=== PATIENT | female | born 1945 | race Caucasian/White ===

== ENCOUNTER 2021-04-13 17:45 | Inpatient (IN) | payer MEDICARE ==
[2021-04-13] MEDS ORDERED: Sodium Chloride 0.9% 1000 ML 1,000 ML ONE (18:07)
--- NOTE | 2021-04-13 18:24 | ERPHSYRPT ---
- History of Present Illness Source: patient Exam Limitations: clinical condition Patient Subjective Stated Complaint: pt here for not earting well, weakness, occ sob for 9 days now, she was dx with covid 04/09/2021 and had monoclonal antiboities on , she states she is not feeling better. talked with spouse and he states she mentally not as sharp as normal Triage Nursing Assessment: pt alert, poor historian, resp easy, dry cough, face mask in place, no edema noted Timing/Duration: day(s) (9) Cough Quality/Degree: mild (Moderate), dry cough Possible Cause: no prior episodes Modifying Factors: Improves With: coughing Associated Symptoms: cough, muscle aches, shortness of breath Hx Influenza Vaccination/Date Given: Yes (fall 2012) Hx Pneumococcal Vaccination/Date Given: No Immunizations Up to Date: Yes <DEVIN TORRES - Last Filed: 04/13/21 18:32> <RODRI NIEVES - Last Filed: 04/13/21 22:07> - History of Present Illness Time Seen by Provider: 04/13/21 18:15 Physician History: This is a 75-year-old white female patient of Dr. Pio Jones who is a poor historian. Much of the history is obtained from the patient's spouse. Approximately 9 days ago patient was noted to have cough and shortness of breath. Over subsequent days she noticed a decreased in appetite and she became weak. She was diagnosed with COVID-19 infection on 04/09/2021. On 04/11/2021 she received an infusion of monoclonal antibodies. Patient's said since then she has been doing worse. Patient spouse notes that in the last several months she has shown some signs of decreased mental sharpness and questions whether or not she is having some degree of dementia. The symptoms have worsened in the last week. Patient's symptoms have included vomiting and diarrhea, headache, weakness, myalgias and arthralgias. Patient has a history of hypertension and elevated cholesterol. Her room air oxygen level on arrival to the emergency department is 89%. 2 L of oxygen via nasal cannula was placed on the patient. Patient denies chest pain and she denies abdominal pain. (DEVIN TORRES) Allergies/Adverse Reactions: No Known Drug Allergies Allergy (Verified 04/13/21 18:21) Home Medications: Carvedilol [Coreg] 3.125 mg PO 04/13/21 [History] Famotidine 20 mg [Pepcid 20 MG] 1 ea DAILY 04/13/21 [History] Potassium Chloride [Klor-Con] 1 ea DAILY 04/13/21 [History] Prednisone 10 mg [Deltasone 10 mg] 1 ea DAILY 04/13/21 [History] Simvastatin 1 ea DAILY 04/13/21 [History] Travel Risk - International Travel Have you traveled outside of the country in past 3 weeks: No - Coronavirus Screening Are you exhibiting any of the following symptoms?: Yes Symptoms: Vomiting/Diarrhea, Headaches/Body Aches/Fatigue Close contact with a COVID-19 positive Pt in past 14-21 Days: No - Vaccine Status Have you recieved a Covid-19 vaccination: No <DEVIN TORRES - Last Filed: 04/13/21 18:32> - Review of Systems Constitutional: Weakness Eyes: No Symptoms Ears, Nose, & Throat: No Symptoms Respiratory: Cough, Dyspnea Cardiac: No Symptoms Abdominal/Gastrointestinal: Vomiting, Diarrhea, Appetite Changes, No Abdominal Pain, No Constipation Genitourinary Symptoms: No Symptoms Musculoskeletal: Arthralgias, Myalgias Skin: No Symptoms Neurological: No Symptoms Psychological: No Symptoms Endocrine: No Symptoms Hematologic/Lymphatic: No Symptoms Immunological/Allergic: No Symptoms All Other Systems: Reviewed and Negative <DEVIN TORRES - Last Filed: 04/13/21 18:32> - Past Medical History Pertinent Past Medical History: Yes Neurological History: No Pertinent History ENT History: No Pertinent History Cardiac History: Hypertension Respiratory History: No Pertinent History Endocrine Medical History: No Pertinent History Musculoskeletal History: No Pertinent History GI Medical History: Esophageal Disorder, Hernia History: No Pertinent History Psycho-Social History: No Pertinent History Female Reproductive Disorders: Other Other Medical History: abnormal uterine cell/hyster - Past Surgical History Past Surgical History: Yes Neuro Surgical History: No Pertinent History Cardiac: No Pertinent History Respiratory: No Pertinent History Gastrointestinal: No Pertinent History Genitourinary: No Pertinent History Musculoskeletal: Other Female Surgical History: Hysterectomy Other Surgical History: right foot/toe joint replacement. prervious EGD in may 2013 - Social History Smoking Status: Never smoker Exposure to second hand smoke: No Drug Use: none Patient Lives Alone: Yes - Female History Hx Last Menstrual Period: psot Hx Now: No <DEVIN TORRES - Last Filed: 04/13/21 18:32> - Physical Exam General Appearance: no apparent distress, alert, lethargy, thin Eye Exam: PERRL/EOMI, eyes nml inspection Ears, Nose, Throat Exam: normal ENT inspection, dry mucous membranes Neck Exam: normal inspection, non-tender, supple, full range of motion Respiratory Exam: normal breath sounds, lungs clear, airway intact, No chest tenderness, No respiratory distress Cardiovascular Exam: regular rate/rhythm, normal heart sounds, normal peripheral pulses Gastrointestinal/Abdomen Exam: soft, normal bowel sounds, No tenderness Pelvic Exam: not done Rectal Exam: not done Back Exam: normal inspection, normal range of motion, No CVA tenderness, No vertebral tenderness Extremity Exam: normal inspection, normal range of motion, pelvis stable Neurologic Exam: alert, cooperative, manager stone II-XII nml as tested (Generalized weakness), other Skin Exam: pale Lymphatic Exam: No adenopathy SpO2 Interpretation: hypoxic SpO2: 90 O2 Delivery: Room Air <LORIE TORRESDO Gemma - Last Filed: 04/13/21 18:32> - Nursing Vital Signs Nursing Vital Signs: Initial Vital Signs O2 Sat by Pulse Oximetry 88 L 04/13/21 18:00 Pain Scale Pain Intensity 0 - Course Nursing assessment & vital signs reviewed: Yes EKG Interpreted by Me: RATE (77), NORMAL AXIS, prolonged QT interval, NORMAL ST- T, Other (No acute ischemic changes on today's EKG. There is no comparison EKG available.) <LORIE TORRESDO SilverRita - Last Filed: 04/13/21 18:32> - Radiology Exams Chest X-ray Interpretation: Reviewed by me, Infiltrates - CT Exams Chest CT Interpretation: Tele-radiologist Report, No PE, Other (infiltrates consistent with Covid) Abdomen/Pelvis CT Interpretation: Tele-radiologist Report, No appendicitis <RODRI NIEVES - Last Filed: 04/13/21 22:07> Ordered Tests: Active Orders 24 hr Category Date Time Status EKG-ER Only STAT Care 04/13/21 18:25 Active IV Insertion STAT Care 04/13/21 18:25 Active Pulse Oximetry (ED) STAT Care 04/13/21 18:25 Active ABDOMEN AND PELVIS W CONTRAST [CT] Stat Exams 04/13/21 20:10 Taken CHEST 1 VIEW (PORTABLE) Stat Exams 04/13/21 18:26 Completed CHEST WITH CONTRAST [CT] Stat Exams 04/13/21 19:34 Taken BLOOD CULTURE Stat Lab 04/13/21 18:41 Received CBC W DIFF Stat Lab 04/13/21 18:41 Completed CMP Stat Lab 04/13/21 18:41 Completed CULTURE,URINE Stat Lab 04/13/21 18:25 Received D-DIMER QUANTITATIVE Stat Lab 04/13/21 18:41 Completed INFLUENZA A+B ENA Stat Lab 04/13/21 19:16 Completed Lactic Acid Stat Lab 04/13/21 18:42 Completed Manual Differential NC Stat Lab 04/13/21 18:41 Completed Deuel Screen Stat Lab 04/13/21 18:41 Completed NT PRO BNP Stat Lab 04/13/21 18:41 Completed TROPONIN Q3H Lab 04/13/21 18:43 Completed TROPONIN Q3H Lab 04/13/21 21:36 Completed TROPONIN Q3H Lab 04/14/21 00:30 Ordered TROPONIN Q3H Lab 04/14/21 03:30 Ordered TROPONIN Q3H Lab 04/14/21 06:30 Ordered UA W/RFX UR CULTURE Stat Lab 04/13/21 18:25 Completed Medication Summary Generic Name Dose Route Start Last Admin Trade Name Freq PRN Reason Stop Dose Admin Sodium Chloride 1,000 mls @ 100 mls/hr 04/13/21 18:30 04/13/21 19:00 Sodium Chloride 0.9% 1000 Ml IV 05/13/21 18:29 100 mls/hr .Q10H PEDRO Administration Potassium Chloride 20 meq in 100 mls @ 50 mls/hr 04/13/21 19:45 Potassium Chloride 20 Meq In Water 100ml IV 04/13/21 23:44 Q2H PEDRO Discontinued Medications Generic Name Dose Route Start Last Admin Trade Name Freq PRN Reason Stop Dose Admin Methylprednisolone Sodium 0 mg 04/13/21 18:27 04/13/21 18:51 Succinate 125 mg/ Sterile IV 04/13/21 18:28 125 mg Water 2 ml STAT ONE Administration Sodium Chloride Confirm 04/13/21 18:07 Sodium Chloride 0.9% 1000 Ml Administered 04/13/21 18:08 Dose 1,000 mls @ ud .ROUTE .STK-MED ONE Methylprednisolone Sodium Succinate Confirm 04/13/21 18:47 Methylprednis Sod Succ 125 Mg/2 Ml Vial Administered 04/13/21 18:48 Dose 125 mg .ROUTE .STK-MED ONE Ondansetron HCl 4 mg 04/13/21 18:25 04/13/21 18:50 Ondansetron Hcl 4 Mg/2 Ml Vial IV 04/13/21 18:26 4 mg STAT STA Administration Ondansetron HCl Confirm 04/13/21 18:47 Ondansetron Hcl 4 Mg/2 Ml Vial Administered 04/13/21 18:48 Dose 4 mg .ROUTE .STK-MED ONE Sterile Water Confirm 04/13/21 18:47 Water For Injection,Sterile 10 Ml Vial Administered 04/13/21 18:48 Dose 10 ml IJ .STK-MED ONE Lab/Rad Data: Laboratory Result Diagrams 04/13/21 18:41 04/13/21 18:41 Laboratory Results 04/13/21 04/13/21 04/13/21 Range/Units 19:19 19:19 19:16 WBC (4.0-10.5) K/mm3 RBC (4.1-5.4) M/mm3 Hgb (12.0-16.0) gm/dl Hct (35-47) % MCV (78-100) fl MCH (26-32) pg MCHC (32-36) g/dl RDW (11.5-14.0) % Plt Count (150-450) K/mm3 MPV (7.5-11.0) fl Segmented Neutrophils (36.0-66.0) % Lymphocytes (Manual) (24-44) % Monocytes (Manual) (0.0-12.0) % Nucleated RBCs % Hypochromia Polychromasia Poikilocytosis Anisocytosis Microcytosis Tear Drop Cells Ovalocytes D-Dimer (215-500) ng/mL Sodium (137-145) mmol/L Potassium (3.5-5.1) mmol/L Chloride (98-107) mmol/L Carbon Dioxide (22-30) mmol/L Anion Gap (5-15) MEQ/L BUN (7-17) mg/dL Creatinine (0.52-1.04) mg/dL Estimated GFR ML/MIN Glucose (74-106) mg/dL Lactic Acid (0.4-2.0) Calcium (8.4-10.2) mg/dL Total Bilirubin (0.2-1.3) mg/dL AST (14-36) U/L ALT (0-35) U/L Alkaline Phosphatase (38-126) U/L Troponin I (0.000-0.034) ng/mL NT-Pro-B Natriuret Pep (0-1800) pg/mL Serum Total Protein (6.3-8.2) g/dL Albumin (3.5-5.0) g/dL Urine Color (YELLOW) Urine Appearance (CLEAR) Urine pH (5-6) Ur Specific [place] (1.005-1.025) Urine Protein (Negative) Urine Ketones (NEGATIVE) Urine Blood (0-5) Raj/ul Urine Nitrite (NEGATIVE) Urine Bilirubin (NEGATIVE) Urine Urobilinogen (0-1) mg/dL Ur Leukocyte Esterase (NEGATIVE) Urine WBC (Auto) (0-5) /HPF Urine RBC (Auto) (0-2) /HPF U Epithel Cells (Auto) (FEW) /HPF Urine Bacteria (Auto) (NEGATIVE) /HPF U Non-Squamous Epi Cells (FEW) /HPF Urine Mucus (Auto) (NEGATIVE) /HPF Urine Culture Reflexed (NO) Urine Glucose (NEGATIVE) mg/dL Monoscreen (Negative) Influenza Type A Ag (NEGATIVE) Influenza Type B Ag (NEGATIVE) Group A Strep Antibody (NEGATIVE) ABO Group O Rh Factor POSITIVE Antibody Screen NEGATIVE (NEGATIVE) Crossmatch COMPATIBLE COMPATIBLE (COMPATIBLE) 04/13/21 04/13/21 04/13/21 Range/Units 19:16 19:16 18:43 WBC (4.0-10.5) K/mm3 RBC (4.1-5.4) M/mm3 Hgb (12.0-16.0) gm/dl Hct (35-47) % MCV (78-100) fl MCH (26-32) pg MCHC (32-36) g/dl RDW (11.5-14.0) % Plt Count (150-450) K/mm3 MPV (7.5-11.0) fl Segmented Neutrophils (36.0-66.0) % Lymphocytes (Manual) (24-44) % Monocytes (Manual) (0.0-12.0) % Nucleated RBCs % Hypochromia Polychromasia Poikilocytosis Anisocytosis Microcytosis Tear Drop Cells Ovalocytes D-Dimer (215-500) ng/mL Sodium (137-145) mmol/L Potassium (3.5-5.1) mmol/L Chloride (98-107) mmol/L Carbon Dioxide (22-30) mmol/L Anion Gap (5-15) MEQ/L BUN (7-17) mg/dL Creatinine (0.52-1.04) mg/dL Estimated GFR ML/MIN Glucose (74-106) mg/dL Lactic Acid (0.4-2.0) Calcium (8.4-10.2) mg/dL Total Bilirubin (0.2-1.3) mg/dL AST (14-36) U/L ALT (0-35) U/L Alkaline Phosphatase (38-126) U/L Troponin I 0.064 H* (0.000-0.034) ng/mL NT-Pro-B Natriuret Pep (0-1800) pg/mL Serum Total Protein (6.3-8.2) g/dL Albumin (3.5-5.0) g/dL Urine Color (YELLOW) Urine Appearance (CLEAR) Urine pH (5-6) Ur Specific [place] (1.005-1.025) Urine Protein (Negative) Urine Ketones (NEGATIVE) Urine Blood (0-5) Raj/ul Urine Nitrite (NEGATIVE) Urine Bilirubin (NEGATIVE) Urine Urobilinogen (0-1) mg/dL Ur Leukocyte Esterase (NEGATIVE) Urine WBC (Auto) (0-5) /HPF Urine RBC (Auto) (0-2) /HPF U Epithel Cells (Auto) (FEW) /HPF Urine Bacteria (Auto) (NEGATIVE) /HPF U Non-Squamous Epi Cells (FEW) /HPF Urine Mucus (Auto) (NEGATIVE) /HPF Urine Culture Reflexed (NO) Urine Glucose (NEGATIVE) mg/dL Monoscreen (Negative) Influenza Type A Ag NEGATIVE (NEGATIVE) Influenza Type B Ag NEGATIVE (NEGATIVE) Group A Strep Antibody NOT DETECTED (NEGATIVE) ABO Group Rh Factor Antibody Screen (NEGATIVE) Crossmatch (COMPATIBLE) 04/13/21 04/13/21 04/13/21 Range/Units 18:42 18:41 18:41 WBC (4.0-10.5) K/mm3 RBC (4.1-5.4) M/mm3 Hgb (12.0-16.0) gm/dl Hct (35-47) % MCV (78-100) fl MCH (26-32) pg MCHC (32-36) g/dl RDW (11.5-14.0) % Plt Count (150-450) K/mm3 MPV (7.5-11.0) fl Segmented Neutrophils (36.0-66.0) % Lymphocytes (Manual) (24-44) % Monocytes (Manual) (0.0-12.0) % Nucleated RBCs % Hypochromia Polychromasia Poikilocytosis Anisocytosis Microcytosis Tear Drop Cells Ovalocytes D-Dimer 1297 H* (215-500) ng/mL Sodium (137-145) mmol/L Potassium (3.5-5.1) mmol/L Chloride (98-107) mmol/L Carbon Dioxide (22-30) mmol/L Anion Gap (5-15) MEQ/L BUN (7-17) mg/dL Creatinine (0.52-1.04) mg/dL Estimated GFR ML/MIN Glucose (74-106) mg/dL Lactic Acid 1.2 (0.4-2.0) Calcium (8.4-10.2) mg/dL Total Bilirubin (0.2-1.3) mg/dL AST (14-36) U/L ALT (0-35) U/L Alkaline Phosphatase (38-126) U/L Troponin I (0.000-0.034) ng/mL NT-Pro-B Natriuret Pep (0-1800) pg/mL Serum Total Protein (6.3-8.2) g/dL Albumin (3.5-5.0) g/dL Urine Color (YELLOW) Urine Appearance (CLEAR) Urine pH (5-6) Ur Specific [place] (1.005-1.025) Urine Protein (Negative) Urine Ketones (NEGATIVE) Urine Blood (0-5) Raj/ul Urine Nitrite (NEGATIVE) Urine Bilirubin (NEGATIVE) Urine Urobilinogen (0-1) mg/dL Ur Leukocyte Esterase (NEGATIVE) Urine WBC (Auto) (0-5) /HPF Urine RBC (Auto) (0-2) /HPF U Epithel Cells (Auto) (FEW) /HPF Urine Bacteria (Auto) (NEGATIVE) /HPF U Non-Squamous Epi Cells (FEW) /HPF Urine Mucus (Auto) (NEGATIVE) /HPF Urine Culture Reflexed (NO) Urine Glucose (NEGATIVE) mg/dL Monoscreen NEGATIVE (Negative) Influenza Type A Ag (NEGATIVE) Influenza Type B Ag (NEGATIVE) Group A Strep Antibody (NEGATIVE) ABO Group Rh Factor Antibody Screen (NEGATIVE) Crossmatch (COMPATIBLE) 04/13/21 04/13/21 04/13/21 Range/Units 18:41 18:41 18:25 WBC 7.1 (4.0-10.5) K/mm3 RBC 3.30 L (4.1-5.4) M/mm3 Hgb 6.0 L* (12.0-16.0) gm/dl Hct 24.7 L (35-47) % MCV 74.8 L (78-100) fl MCH 18.2 L (26-32) pg MCHC 24.3 L (32-36) g/dl RDW 20.1 H (11.5-14.0) % Plt Count 300 (150-450) K/mm3 MPV 10.0 (7.5-11.0) fl Segmented Neutrophils 91 H (36.0-66.0) % Lymphocytes (Manual) 3 L (24-44) % Monocytes (Manual) 6 (0.0-12.0) % Nucleated RBCs 5 % Hypochromia 2+ Polychromasia 1+ Poikilocytosis 1+ Anisocytosis 1+ Microcytosis 2+ Tear Drop Cells 1+ Ovalocytes 1+ D-Dimer (215-500) ng/mL Sodium 142 (137-145) mmol/L Potassium 3.0 L* (3.5-5.1) mmol/L Chloride 101 (98-107) mmol/L Carbon Dioxide 29 (22-30) mmol/L Anion Gap 14.4 (5-15) MEQ/L BUN 21 H (7-17) mg/dL Creatinine 0.76 (0.52-1.04) mg/dL Estimated GFR > 60.0 ML/MIN Glucose 101 (74-106) mg/dL Lactic Acid (0.4-2.0) Calcium 8.1 L (8.4-10.2) mg/dL Total Bilirubin 0.80 (0.2-1.3) mg/dL AST 29 (14-36) U/L ALT 27 (0-35) U/L Alkaline Phosphatase 75 (38-126) U/L Troponin I (0.000-0.034) ng/mL NT-Pro-B Natriuret Pep 2160 H (0-1800) pg/mL Serum Total Protein 6.3 (6.3-8.2) g/dL Albumin 3.3 L (3.5-5.0) g/dL Urine Color DARK YELLOW (YELLOW) Urine Appearance CLOUDY (CLEAR) Urine pH 6.0 (5-6) Ur Specific [place] 1.017 (1.005-1.025) Urine Protein 100 (Negative) Urine Ketones MODERATE (NEGATIVE) Urine Blood NEGATIVE (0-5) Raj/ul Urine Nitrite POSITIVE (NEGATIVE) Urine Bilirubin NEGATIVE (NEGATIVE) Urine Urobilinogen NEGATIVE (0-1) mg/dL Ur Leukocyte Esterase LARGE (NEGATIVE) Urine WBC (Auto) >100 (0-5) /HPF Urine RBC (Auto) 6-10 (0-2) /HPF U Epithel Cells (Auto) RARE (FEW) /HPF Urine Bacteria (Auto) PACKED (NEGATIVE) /HPF U Non-Squamous Epi Cells RARE (FEW) /HPF Urine Mucus (Auto) SLIGHT (NEGATIVE) /HPF Urine Culture Reflexed YES (NO) Urine Glucose NEGATIVE (NEGATIVE) mg/dL Monoscreen (Negative) Influenza Type A Ag (NEGATIVE) Influenza Type B Ag (NEGATIVE) Group A Strep Antibody (NEGATIVE) ABO Group Rh Factor Antibody Screen (NEGATIVE) Crossmatch (COMPATIBLE) - Progress Air Movement: fair Blood Culture(s) Obtained: Yes Counseled pt/family regarding: lab results, diagnosis, rad results <DEVIN TORRES - Last Filed: 04/13/21 18:32> - Progress Progress: re-examined, unchanged Antibiotics given: No Discussed with Dr.: Other (Dr. Cortez) Will see patient in: hospital (full admit), ED Counseled pt/family regarding: lab results, diagnosis, need for follow-up, rad results <RODRI NIEVES - Last Filed: 04/13/21 22:07> - Progress Progress Note: 04/13/21 18:37 At shift change, patient transfer of care to Dr. Nieves. He will follow up with pending laboratory test and x-ray studies. He will make final disposition. (DEVIN TORRES) 04/13/21 18:57 pt taken at change of shift from Dr. Torres after introduction and discussion of pending tests. pt is recent Covid + with vomiting and now decreased hgb 04/13/21 19:09 PT REPORTS NO ABD PAIN AND HAS NO ABD TENDERNESS ON EXAM. she has not noticed any blood in her vomitus or stool. 04/13/21 20:06 contacted transfer center and no beds at [facility] - placed on wait list for possibly tomorrow for + trop Covid for [facility] at . no current chest pain. 04/13/21 20:44 we had to call around to look for admission options and order some CTs to rule out additional pathology which is taking some additional time to complete. 04/13/21 21:[address] Cortez in ER and he saw pt here and all agree best to admit pt on Covid unit and trend trops - he is writing orders. (RODRI NIEVES) - Departure Departure Disposition: In-patient Admission Critical Care Time: No <DEVIN TORRES - Last Filed: 04/13/21 18:32> - Departure Departure Disposition: Observation <RODRI NIEVES - Last Filed: 04/13/21 22:07> - Departure Clinical Impression: COVID-19 virus infection, Hypoxia, Weakness, Decreased hemoglobin, elevated D dimer and troponins Condition: Fair
[2021-04-13] MEDS ORDERED: Zofran 4 MG/2 ML VIAL IV STA (18:25)
[2021-04-13] MEDS ORDERED: solu-MEDROL 125 MG, Sterile H2O 10 ml 2 ML IV ONE ×2 (18:27)
[2021-04-13] MEDS ORDERED: Zofran 4 MG/2 ML VIAL ONE (18:47)
[2021-04-13] MEDS ORDERED: solu-MEDROL ONE (18:47)
[2021-04-13] MEDS ORDERED: Sterile H2O 10 ml IJ ONE (18:47)
[2021-04-13 18:48] LABS: Hematocrit 24.7 % (35-47); Mean Cell Volume 74.8 fl (78-100); Mean Corpuscular Hemoglobin 18.2 pg (26-32); Mean Corpuscular Hgb Concent. 24.3 g/dl (32-36); Platelet Count 300 K/mm3 (150-450); Red Cell Distribution Width 20.1 % (11.5-14.0); White Blood Count 7.1 K/mm3 (4.0-10.5)
[2021-04-13] MEDS: Sodium Chloride 0.9% 1000 ML 1,000 ML IV SCH (19:00)
--- NOTE | 2021-04-13 19:13 | XRAY ---
Indication: Cough. Positive Covid 19. Comparison: January 20, 2006. Portable chest demonstrates new mild diffuse bilateral hazy interstitial alveolar opacities, left greater than right without consolidation//effusion. New borderline cardiomegaly and small hiatal hernia. Bony thorax intact with mild osteopenia and degenerative changes.
[2021-04-13 19:15] LABS: ALBUMIN 3.3 g/dL (3.5-5.0); ALKALINE PHOSPHATASE 75 U/L (38-126); ANION GAP 14.4 MEQ/L (5-15); BLOOD UREA NITROGEN 21 mg/dL (7-17); CHLORIDE 101 mmol/L (98-107); Calcium 8.1 mg/dL (8.4-10.2); Carbon Dioxide 29 mmol/L (22-30); Creatinine 1 0.76 mg/dL (0.52-1.04); EST GLOMERULAR FILTRATION RATE > 60.0 ML/MIN; Glucose 101 mg/dL (74-106); NT PRO BNP 2160 pg/mL (0-1800); SGOT/AST 29 U/L (14-36); SGPT/ALT 27 U/L (0-35); SODIUM 142 mmol/L (137-145); Total Protein 6.3 g/dL (6.3-8.2)
[2021-04-13 19:50] LABS: INFLUENZA A NEGATIVE (NEGATIVE); INFLUENZA B NEGATIVE (NEGATIVE)
[2021-04-13 20:24] LABS: Appearance CLOUDY (CLEAR); Bacteria PACKED /HPF (NEGATIVE); Bilirubin NEGATIVE (NEGATIVE); Blood NEGATIVE Ery/ul (0-5); Epithelial Cells RARE /HPF (FEW); Glucose NEGATIVE (NEGATIVE); Ketones MODERATE (NEGATIVE); Leukocyte Esterase LARGE (NEGATIVE); Mucus SLIGHT /HPF (NEGATIVE); Nitrite POSITIVE (NEGATIVE); Non-Squamous Epithelial Cells RARE /HPF (FEW); Protein,Urine Dip 100 (Negative); Specific Gravity 1.017 (1.005-1.025); Urobilinogen NEGATIVE mg/dL (0-1); WBC >100 /HPF (0-5)
[2021-04-13 21:02] LABS: ABO TYPING O; Antibody Screen NEGATIVE (NEGATIVE); RH TYPING POSITIVE
[2021-04-13 21:55] LABS: ANISOCYTOSIS 1+; Hypochromia 2+; Lymphocytes 3 % (24-44); Microcytosis 2+; Monocyte 6 % (0.0-12.0); Neutrophils 91 % (36.0-66.0); Nucleated Red Blood Cell 5 %; Polychromasia 1+; Total Cells Counted 100
[2021-04-13 21:56] LABS: Ovalocytes 1+; Poikilocytosis 1+; Tear Drop Cells 1+
[2021-04-13] MEDS ORDERED: Lasix 20 MG/2 ML IV PRN (22:58)
[2021-04-13] MEDS ORDERED: Ativan 2 MG/1 ML VIAL IV PRN (22:59)
[2021-04-13] MEDS ORDERED: Ativan 1 MG PO PRN (22:59)
[2021-04-13] MEDS ORDERED: HYDROCODONE-CHLORPHEN ER SUSP PO PRN (22:59)
[2021-04-13] MEDS ORDERED: REMDESIVIR 200 MG in Sodium Chloride 0.9% 250 ML 250 ML IV ONE (22:59)
[2021-04-13] MEDS ORDERED: REMDESIVIR IV ONE (23:09)
[2021-04-13] MEDS ORDERED: Sodium Chloride 0.9% 250 ML 250 ML IV ONE (23:09)
[2021-04-13] MEDS: POTASSIUM CHLORIDE 20 mEq IN WATER 100ML 20 MEQ/100 ML BAG IV SCH (23:21)
[2021-04-14] MEDS: POTASSIUM CHLORIDE 20 mEq IN WATER 100ML 20 MEQ/100 ML BAG IV SCH (01:54)
[2021-04-14 04:38] LABS: Hematocrit 33.7 % (35-47); Hemoglobin 9.4 gm/dl (12.0-16.0); Mean Corpuscular Hemoglobin 21.8 pg (26-32); Mean Corpuscular Hgb Concent. 27.9 g/dl (32-36); Mean Platelet Volume 10.1 fl (7.5-11.0); Platelet Count 244 K/mm3 (150-450); Red Blood Count 4.32 M/mm3 (4.1-5.4); Red Cell Distribution Width 20.5 % (11.5-14.0); White Blood Count 6.9 K/mm3 (4.0-10.5)
[2021-04-14 04:48] LABS: ALKALINE PHOSPHATASE 71 U/L (38-126); ANION GAP 15.9 MEQ/L (5-15); BLOOD UREA NITROGEN 16 mg/dL (7-17); CHLORIDE 103 mmol/L (98-107); Calcium 7.6 mg/dL (8.4-10.2); Carbon Dioxide 25 mmol/L (22-30); Creatinine 1 0.57 mg/dL (0.52-1.04); EST GLOMERULAR FILTRATION RATE > 60.0 ML/MIN; Glucose 135 mg/dL (74-106); Potassium 3.7 mmol/L (3.5-5.1); SGOT/AST 25 U/L (14-36); SGPT/ALT 24 U/L (0-35); SODIUM 141 mmol/L (137-145); Total Protein 5.6 g/dL (6.3-8.2)
[2021-04-14 05:06] LABS: TROPONIN 0.052 ng/mL (0.000-0.034)
[2021-04-14 06:50] LABS: Slide Review YES
[2021-04-14] MEDS: Sodium Chloride 0.9% 1000 ML 1,000 ML IV SCH ×2 (07:15)
--- NOTE | 2021-04-14 07:33 | XRAY ---
Indication: Weakness, nausea, vomiting, and diarrhea. GI bleed. Multiple contiguous axial images obtained through the abdomen and pelvis using 80 cc Isovue 370 contrast. Comparison: None CT chest reported separately. Noncontrasted stomach and bowel loops appear nonobstructed. Mild scattered colonic diverticulosis greatest in the sigmoid. No free fluid/air. Incidental hysterectomy and 2.8 cm left renal parapelvic cyst. Remaining liver, gallbladder, pancreas, spleen, adrenal glands, kidneys, ureters, and latter are unremarkable. Mild scattered aortoiliac calcifications. No AAA or pathologic retroperitoneal lymphadenopathy. Osseous structures intact with osteopenia, mild/moderate degenerative changes throughout the spine, mild levorotoscoliosis centered at L1, and advanced right hip degenerative arthropathy. Impression: 1. Colonic diverticulosis, left renal cyst, and chronic bony findings. 2. Remaining CT abdomen/pelvis with contrast exam is negative. Comment: Preliminary interpretation made by C. No critical discrepancy.
--- NOTE | 2021-04-14 07:34 | XRAY ---
Indication: Short of breath. Elevated d-dimer. Positive Covid 19. Multiple contiguous axial images obtained through the chest using 80 cc Isovue 370 contrast and PE protocol. Comparison: None There is good opacification of the pulmonary arteries. However mild diffuse respiration artifact limits evaluation of the more distal lobar and segmental branches. No obvious pulmonary embolus. Heart is enlarged. Aorta is mildly arteriosclerotic without aneurysm/dissection. No pathologic mediastinal/hilar lymphadenopathy. Moderate size hiatal hernia with partial intrathoracic stomach. Lungs demonstrates mild diffuse patchy airspace disease greatest in both lower lobes. No effusion. Osseous structures intact with osteopenia and mild degenerative changes throughout the spine. CT abdomen/pelvis reported separately. Impression: 1. Pulmonary embolus evaluation limited by respiration artifact. No obvious pulmonary embolus. 2. Diffuse bilateral patchy airspace disease. Commonly reported imaging features of Covid 19 pneumonia are present. Other processes such as influenza pneumonia and organizing pneumonia, as can be seen with drug toxicity and connective-tissue disease, can cause a similar imaging pattern. 3. Incidental cardiomegaly, hiatal hernia with partial intrathoracic stomach, and chronic bony findings. Comment: Preliminary interpretation made by C. No critical discrepancy..
[2021-04-14] MEDS: OLUMIANT PO SCH (11:40)
[2021-04-14] MEDS: Coreg 6.25 MG PO SCH (11:40)
[2021-04-14] MEDS: ZOCOR 20MG PO SCH (11:41)
[2021-04-14] MEDS: Klor Con 10 MEQ PO SCH (11:41)
[2021-04-14] MEDS: Protonix 20MG Tablet PO SCH (11:41)
[2021-04-14] MEDS: DECADRON 10MG INJ. IV SCH (11:42)
[2021-04-14] MEDS: LOPRESSOR 5 MG/5 ML INJECTION IV SCH (22:25)
[2021-04-14] MEDS ORDERED: REMDESIVIR 100 MG in Sodium Chloride 0.9% 100 ML BAG 100 ML IV SCH (23:00)
[2021-04-15 05:42] LABS: Hematocrit 34.3 % (35-47); Hemoglobin 9.5 gm/dl (12.0-16.0); Mean Cell Volume 77.6 fl (78-100); Mean Corpuscular Hemoglobin 21.5 pg (26-32); Mean Corpuscular Hgb Concent. 27.7 g/dl (32-36); Mean Platelet Volume 9.6 fl (7.5-11.0); Platelet Count 292 K/mm3 (150-450); Red Blood Count 4.42 M/mm3 (4.1-5.4); Red Cell Distribution Width 20.9 % (11.5-14.0); White Blood Count 10.2 K/mm3 (4.0-10.5)
[2021-04-15 06:04] LABS: ALBUMIN 3.2 g/dL (3.5-5.0); ALKALINE PHOSPHATASE 70 U/L (38-126); ANION GAP 9.9 MEQ/L (5-15); BLOOD UREA NITROGEN 23 mg/dL (7-17); CHLORIDE 105 mmol/L (98-107); Calcium 8.5 mg/dL (8.4-10.2); Carbon Dioxide 31 mmol/L (22-30); Creatinine 1 0.57 mg/dL (0.52-1.04); EST GLOMERULAR FILTRATION RATE > 60.0 ML/MIN; Glucose 111 mg/dL (74-106); Potassium 3.5 mmol/L (3.5-5.1); SGOT/AST 23 U/L (14-36); SGPT/ALT 22 U/L (0-35); SODIUM 142 mmol/L (137-145); Total Protein 6.1 g/dL (6.3-8.2)
[2021-04-15 07:22] LABS: Slide Review YES
[2021-04-15] MEDS ORDERED: NON-FORMULARY ITEM (Simvastatin [Simvastatin] 40 MG Tablet) PO SCH (10:00)
[2021-04-15] MEDS: Coreg 6.25 MG PO SCH (10:31)
[2021-04-15] MEDS: Zestril 20 MG PO SCH (10:33)
[2021-04-15] MEDS: ZOCOR 20MG PO SCH (10:33)
[2021-04-15] MEDS: FEOSOL 325 MG PO SCH (10:33)
[2021-04-15] MEDS: Klor Con 10 MEQ PO SCH (10:33)
[2021-04-15] MEDS: OLUMIANT PO SCH (10:33)
[2021-04-15] MEDS: DECADRON 10MG INJ. IV SCH (10:34)
[2021-04-15] MEDS: LOPRESSOR 5 MG/5 ML INJECTION IV SCH ×2 (10:35→21:36)
[2021-04-15] MEDS: ENOXAPARIN SODIUM SQ SCH (10:36)
[2021-04-15 10:41] LABS: Absolute Neutrophil Ct (ANC) 7.87 (1.4-6.9); Basophil (Absolute #) 0 (0-0.4); Eosinophil (Absolute #) 0 (0-0.5); Hematocrit 35.8 % (35-47); Hemoglobin 10.1 gm/dl (12.0-16.0); Lymphocyte (Absolute #) 0.89 (1.0-4.6); Lymphocytes % 9.2 % (24.0-44.0); Mean Cell Volume 77.3 fl (78-100); Mean Corpuscular Hemoglobin 21.8 pg (26-32); Mean Corpuscular Hgb Concent. 28.2 g/dl (32-36); Mean Platelet Volume 9.7 fl (7.5-11.0); Monocyte (Absolute #) 0.88 (0.0-1.3); Monocytes % 9.1 % (0.0-12.0); Neutrophil % 81.7 % (36.0-66.0); Platelet Count 311 K/mm3 (150-450); Red Blood Count 4.63 M/mm3 (4.1-5.4); Red Cell Distribution Width 21.3 % (11.5-14.0); White Blood Count 9.6 K/mm3 (4.0-10.5)
[2021-04-15] MEDS: Protonix 20MG Tablet PO SCH (10:42)
[2021-04-15] MEDS ORDERED: Phenergan 25 MG INJ*** 12.5 MG in Sodium Chloride 0.9% 100 ML BAG 100 ML IV PRN (10:58)
[2021-04-15] MEDS ORDERED: MORPHINE SULFATE 2 MG INJ IV ONE (13:24)
[2021-04-15] MEDS: Cipro 500 MG PO SCH (13:42)
[2021-04-15] MEDS: MORPHINE SULFATE 2 MG INJ IV PRN (21:35)
[2021-04-15] MEDS: REMDESIVIR 100 MG in Sodium Chloride 0.9% 100 ML BAG 100 ML IV SCH (21:35)
[2021-04-16] MEDS: Cipro 500 MG PO SCH ×2 (08:50→16:02)
[2021-04-16 08:53] LABS: Mean Cell Volume 78.4 fl (78-100); Mean Corpuscular Hemoglobin 21.8 pg (26-32); Mean Corpuscular Hgb Concent. 27.8 g/dl (32-36); Mean Platelet Volume 9.6 fl (7.5-11.0); Platelet Count 271 K/mm3 (150-450); Red Blood Count 4.59 M/mm3 (4.1-5.4); Red Cell Distribution Width 22.3 % (11.5-14.0); White Blood Count 5.8 K/mm3 (4.0-10.5)
[2021-04-16] MEDS: ENOXAPARIN SODIUM SQ SCH (08:55)
[2021-04-16] MEDS: Zestril 20 MG PO SCH (08:55)
[2021-04-16] MEDS: OLUMIANT PO SCH (08:56)
[2021-04-16] MEDS: DECADRON 10MG INJ. IV SCH (08:57)
[2021-04-16] MEDS: Protonix 20MG Tablet PO SCH (08:59)
[2021-04-16] MEDS: LOPRESSOR 5 MG/5 ML INJECTION IV SCH ×2 (09:01→21:03)
[2021-04-16] MEDS: FEOSOL 325 MG PO SCH (09:02)
[2021-04-16] MEDS: Coreg 6.25 MG PO SCH (09:02)
[2021-04-16] MEDS: Klor Con 10 MEQ PO SCH (09:03)
[2021-04-16] MEDS: ZOCOR 20MG PO SCH (09:20)
[2021-04-16 09:53] LABS: ALBUMIN 3.1 g/dL (3.5-5.0); ALKALINE PHOSPHATASE 70 U/L (38-126); ANION GAP 10.8 MEQ/L (5-15); BLOOD UREA NITROGEN 22 mg/dL (7-17); CHLORIDE 103 mmol/L (98-107); Calcium 8.6 mg/dL (8.4-10.2); Carbon Dioxide 31 mmol/L (22-30); Creatinine 1 0.48 mg/dL (0.52-1.04); EST GLOMERULAR FILTRATION RATE > 60.0 ML/MIN; Glucose 106 mg/dL (74-106); Potassium 3.7 mmol/L (3.5-5.1); SGOT/AST 22 U/L (14-36); SGPT/ALT 20 U/L (0-35); SODIUM 141 mmol/L (137-145); Total Protein 5.6 g/dL (6.3-8.2)
[2021-04-16] MEDS: hydroDIURIL 25 MG PO SCH (13:02)
--- NOTE | 2021-04-16 13:11 | HP ---
CHIEF COMPLAINT: Cough, severe weakness, lightheadedness, problems walking, not eating for nine days, decreased alertness. HISTORY OF PRESENT ILLNESS: The patient has become this way and gotten worse over eight days. She had a dry cough. She came to the emergency room and tested positive for COVID. She is extremely pale and her hemoglobin came back to be 6. HOME MEDICATIONS: Coreg 3.125 b.i.d., Pepcid 20 q.d., KCL 10 q.d., prednisone 10 q.d., Simvastatin 1 q.d. ALLERGIES: NKDA. PAST MEDICAL HISTORY: She has history of hypertension, elevated cholesterol. No history of anemia. She just recently had been put on some prednisone for upper respiratory tract infection. REVIEW OF SYSTEMS: CONSTITUTIONAL: Weakness, decreased alertness. HEENT: Runny nose. CHEST: Cough, shortness of breath. CVS: No symptoms. ABDOMEN: Some nausea, some vomiting, not eating. : No symptoms. MUSCULOSKELETAL: The patient is not able to walk to the bathroom without assistance starting yesterday. PHYSICAL EXAMINATION: The patient looks extremely frail, pale and confused. VITAL SIGNS: O2 was 90% on room air. Blood pressure 110/70, respirations 20. HEENT: Pupils equal and reactive to light. NECK: Supple without adenopathy. CHEST: Few crackles bilateral. CVS: Irregular rate, heart rate around 100. ABDOMEN: Soft, slightly tender lower abdomen. EXTREMITIES: No cyanosis. Very pale. No edema. LAB DATA AND TESTS: The patient's CTNI was elevated at 0.047. Urine culture growing gram-negative rods. Potassium 3.8. Hemoglobin initially was 6. D-dimer 1225. CTNI 0.052 on second draw. IMPRESSION: 1) The patient has COVID gastritis and COVID pneumonia 2) The patient has severe iron deficiency anemia unknown cause. I note she is on Pepcid. She denies any abdominal pain but does state she has black stools. She has had diarrhea recently. 3) The patient's CTNI is elevated, EKG is normal so I think this is secondary to COVID and will go back to normal with the third draw. PLAN: Give 2 units of packed cells with Lasix in between, treat her for COVID. Will need endoscopy in the future. PROGNOSIS: Fair.
[2021-04-16 13:47] LABS: Slide Review YES
[2021-04-16] MEDS: TYLENOL EXTRA STRENGTH 500 MG PO PRN ×2 (14:27→21:03)
[2021-04-16] MEDS: MORPHINE SULFATE 2 MG INJ IV PRN (18:57)
[2021-04-16] MEDS: REMDESIVIR 100 MG in Sodium Chloride 0.9% 100 ML BAG 100 ML IV SCH (21:03)
[2021-04-17] MEDS: TYLENOL EXTRA STRENGTH 500 MG PO PRN ×3 (01:23→14:16)
[2021-04-17 06:03] LABS: Hematocrit 32.9 % (35-47); Hemoglobin 9.6 gm/dl (12.0-16.0); Mean Cell Volume 76.7 fl (78-100); Mean Corpuscular Hemoglobin 22.4 pg (26-32); Mean Corpuscular Hgb Concent. 29.2 g/dl (32-36); Mean Platelet Volume 9.8 fl (7.5-11.0); Platelet Count 314 K/mm3 (150-450); Red Blood Count 4.29 M/mm3 (4.1-5.4); Red Cell Distribution Width 22.7 % (11.5-14.0); White Blood Count 6.2 K/mm3 (4.0-10.5)
[2021-04-17 06:52] LABS: ALBUMIN 3.1 g/dL (3.5-5.0); ALKALINE PHOSPHATASE 68 U/L (38-126); ANION GAP 9.6 MEQ/L (5-15); BLOOD UREA NITROGEN 20 mg/dL (7-17); CHLORIDE 97 mmol/L (98-107); Calcium 8.5 mg/dL (8.4-10.2); Carbon Dioxide 32 mmol/L (22-30); Creatinine 1 0.53 mg/dL (0.52-1.04); EST GLOMERULAR FILTRATION RATE > 60.0 ML/MIN; Glucose 105 mg/dL (74-106); Potassium 3.1 mmol/L (3.5-5.1); SGOT/AST 21 U/L (14-36); SGPT/ALT 18 U/L (0-35); SODIUM 135 mmol/L (137-145); Total Protein 5.7 g/dL (6.3-8.2)
[2021-04-17] MEDS: Sodium Chloride 0.9% 1000 ML 1,000 ML IV SCH ×2 (07:18→07:27)
[2021-04-17] MEDS: Cipro 500 MG PO SCH ×2 (07:36→16:17)
[2021-04-17 07:43] LABS: Slide Review YES
[2021-04-17] MEDS: Klor Con 10 MEQ PO SCH (08:31)
[2021-04-17] MEDS: hydroDIURIL 25 MG PO SCH (08:31)
[2021-04-17] MEDS: OLUMIANT PO SCH (08:31)
[2021-04-17] MEDS: ENOXAPARIN SODIUM SQ SCH (08:31)
[2021-04-17] MEDS: Coreg 6.25 MG PO SCH (08:32)
[2021-04-17] MEDS: ZOCOR 20MG PO SCH (08:32)
[2021-04-17] MEDS: FEOSOL 325 MG PO SCH (08:32)
[2021-04-17] MEDS: Protonix 20MG Tablet PO SCH (08:33)
[2021-04-17] MEDS: DECADRON 10MG INJ. IV SCH (08:33)
[2021-04-17] MEDS: Zestril 20 MG PO SCH (08:37)
[2021-04-17] MEDS: LOPRESSOR 5 MG/5 ML INJECTION IV SCH (10:22)
--- NOTE | 2021-04-17 12:52 | PROG NOTE ---
DATE: 04/17/2021 HISTORY: The patient today is sitting up, smiling, talkative, looks tremendously improved. She is no longer confused and writhing in pain. She came in with severe weakness, coughing, tested positive for COVID. She was very anemic. I think her hemoglobin was like 7. She received 2 units of packed red blood cells. She also had epigastric pain. I noted that she was on some Pepcid at home probably from an ulcer. However, she does have COVID and so that will have to be evaluated with EGD and colonoscope in two to four weeks. Presently she is much improved. Chest is clear. She is off her oxygen. She is starting to eat and talk. Hopefully she will go home in a day or so. IMPRESSION: COVID improved, anemia transfused with 2 units of blood. I notice the D-dimer is still high at 2162. She is not anticoagulated due to probably the acute GI bleeding and she did have some black stools. Hemoglobin today is 9.6. The patient is stable.
[2021-04-17] MEDS: REMDESIVIR 100 MG in Sodium Chloride 0.9% 100 ML BAG 100 ML IV SCH (22:20)
[2021-04-18 05:07] LABS: Hemoglobin 10.6 gm/dl (12.0-16.0); Mean Cell Volume 75.4 fl (78-100); Mean Corpuscular Hemoglobin 21.6 pg (26-32); Mean Corpuscular Hgb Concent. 28.6 g/dl (32-36); Mean Platelet Volume 9.6 fl (7.5-11.0); Platelet Count 300 K/mm3 (150-450); Red Blood Count 4.91 M/mm3 (4.1-5.4); Red Cell Distribution Width 23.7 % (11.5-14.0)
[2021-04-18 05:18] LABS: ALBUMIN 3.2 g/dL (3.5-5.0); ALKALINE PHOSPHATASE 75 U/L (38-126); ANION GAP 10.3 MEQ/L (5-15); BLOOD UREA NITROGEN 19 mg/dL (7-17); CHLORIDE 93 mmol/L (98-107); Calcium 8.6 mg/dL (8.4-10.2); Carbon Dioxide 34 mmol/L (22-30); Creatinine 1 0.59 mg/dL (0.52-1.04); EST GLOMERULAR FILTRATION RATE > 60.0 ML/MIN; Glucose 118 mg/dL (74-106); SGOT/AST 25 U/L (14-36); SGPT/ALT 21 U/L (0-35); SODIUM 134 mmol/L (137-145); Total Protein 5.7 g/dL (6.3-8.2)
[2021-04-18 05:31] LABS: Potassium 2.9 mmol/L (3.5-5.1)
[2021-04-18] MEDS: Cipro 500 MG PO SCH ×2 (06:32→15:53)
[2021-04-18] MEDS: Sodium Chloride 0.9% 1000 ML 1,000 ML IV SCH ×2 (07:13→09:03)
[2021-04-18] MEDS: OLUMIANT PO SCH (08:25)
[2021-04-18] MEDS: hydroDIURIL 25 MG PO SCH (08:25)
[2021-04-18] MEDS: Zestril 20 MG PO SCH (08:25)
[2021-04-18] MEDS: ENOXAPARIN SODIUM SQ SCH (08:25)
[2021-04-18] MEDS: FEOSOL 325 MG PO SCH (08:25)
[2021-04-18] MEDS: DECADRON 10MG INJ. IV SCH (08:25)
[2021-04-18] MEDS: ZOCOR 20MG PO SCH (08:25)
[2021-04-18] MEDS: Coreg 6.25 MG PO SCH (08:25)
[2021-04-18] MEDS: Klor Con 10 MEQ PO SCH (08:25)
[2021-04-18] MEDS: Protonix 20MG Tablet PO SCH (08:27)
[2021-04-18] MEDS: POTASSIUM CHLORIDE 20 mEq IN WATER 100ML 20 MEQ/100 ML BAG IV SCH ×2 (09:08→10:40)
[2021-04-18 12:39] VITALS: BP 126/72
--- NOTE | 2021-04-18 13:28 | PCM.DS ---
Discharge Summary Date of Admission: 04/13/21 20:18 Admitting Physician: CHARITO CASTILLO Primary Care Provider: KWASI CLIFFORD Allergies Allergies No Known Drug Allergies Allergy (Verified 04/13/21 18:21) Hospital Summary - Hospital Course Hospital Course: Chief Complaint Diagnosis covid Allergies Allergy/AdvReac Type Severity Reaction Status Date / Time No Known Drug Allergies Allergy Verified 04/13/21 18:21 Vital Signs (Last 24 hours) Temp Pulse Resp BP Pulse Ox 04/18/21 12:00 97.9 F 94 H 22 126/72 97 04/18/21 11:41 19 04/18/21 10:00 90 19 96 04/18/21 08:00 99.5 F 94 H 19 120/60 96 04/18/21 07:29 92 L 04/18/21 06:00 13 04/18/21 05:50 87 19 90 L 04/18/21 03:54 98.3 F 112 H 13 139/68 91 L 04/18/21 02:00 17 04/18/21 01:54 82 19 95 04/18/21 00:00 20 04/17/21 23:37 97.7 F 94 H 22 141/65 91 L 04/17/21 22:00 100 H 17 94 L 04/17/21 19:34 98.7 F 93 H 19 145/76 94 L 04/17/21 19:33 97.9 F 91 H 19 91 L 04/17/21 19:15 91 L 04/17/21 17:55 97.9 F 91 H 19 100 04/17/21 16:00 97.9 F 91 H 19 157/74 94 L 04/17/21 14:00 97 H 18 Home Medications Medication Instructions Recorded Confirmed Last Taken Type Carvedilol [Coreg] 3.125 mg PO DAILY 04/13/21 04/14/21 04/13/21 History Famotidine 20 mg [Pepcid 20 1 ea PO DAILY 04/13/21 04/14/21 04/13/21 History MG] Prednisone 10 mg [Deltasone 10 1 ea PO DAILY 04/13/21 04/14/21 Unknown History mg] Simvastatin 1 ea PO DAILY 04/13/21 04/14/21 04/13/21 History Potassium Chloride [Klor-Con 10] 20 meq PO DAILY 04/14/21 04/14/21 04/13/21 History Ciprofloxacin [Cipro 500 MG] 250 mg PO BIDAC 7 Days #14 tablet 04/18/21 Unknown Rx Current Medications Generic Name Dose Route Start Last Admin Trade Name Freq PRN Reason Stop Dose Admin Acetaminophen 500 - 1,000 mg 04/13/21 22:59 04/17/21 14:16 Acetaminophen 500 Mg Tablet PO 05/13/21 22:58 1,000 mg Q4H PRN PRN Administration Temp > 100.4 Orally Baricitinib 4 mg 04/14/21 10:00 04/18/21 08:25 Baricitinib 2 Mg Tablet PO 04/27/21 10:01 4 mg DAILY PEDRO Administration Carvedilol 3.125 mg 04/14/21 11:30 04/18/21 08:25 Carvedilol 6.25 Mg Tablet PO 05/14/21 11:29 3.125 mg DAILY PEDRO Administration Chlorphenir/Hydrocodone Polistirex 5 ml 04/13/21 22:59 Hydrocodone/Chlorphen P-Stirex 1 Ml Conchita.Er.12h PO 05/13/21 22:58 [id number] PRN COUGH Ciprofloxacin 250 mg 04/15/21 16:30 04/18/21 06:32 Ciprofloxacin 500 Mg Tablet PO 05/15/21 16:29 250 mg BIDAC PEDRO Administration Dexamethasone Sodium Phosphate 8 mg 04/14/21 10:00 04/18/21 08:25 Dexamethasone Sod Phosphate 10 Mg/Ml IV 04/24/21 09:59 8 mg DAILY PEDRO Administration Enoxaparin Sodium 30 mg 04/15/21 11:00 04/18/21 08:25 Enoxaparin Sodium 30 Mg/0.3 Ml Syringe SQ 05/15/21 10:59 30 mg DAILY PEDRO Administration Ferrous Sulfate 325 mg 04/15/21 10:02 04/18/21 08:25 Ferrous Sulfate 325 Mg Tablet PO 05/15/21 10:01 325 mg DAILY PEDRO Administration Furosemide 20 mg 04/13/21 22:58 04/13/21 23:41 Furosemide 20 Mg/Vial IV 05/13/21 22:57 20 mg BETWEEN UNITS PRN Administration SHORTNESS OF BREATH Hydrochlorothiazide 25 mg 04/16/21 11:00 04/18/21 08:25 Hydrochlorothiazide 25 Mg Tablet PO 05/16/21 10:59 25 mg DAILY PEDRO Administration Sodium Chloride 1,000 mls @ 30 mls/hr 04/13/21 23:00 04/18/21 09:03 Sodium Chloride 0.9% 1000 Ml IV 05/13/21 22:59 30 mls/hr .Q24H PEDRO Administration Lisinopril 20 mg 04/17/21 10:00 04/18/21 08:25 Lisinopril 20 Mg Tablet PO 05/17/21 09:59 20 mg DAILY PEDRO Administration Morphine Sulfate 2 mg 04/15/21 15:45 04/16/21 18:57 Morphine Sulfate 2 Mg/Ml Inj IV 04/20/21 15:44 2 mg Q3H PRN PRN Administration PAIN Pantoprazole Sodium 20 mg 04/14/21 10:00 04/18/21 08:27 Pantoprazole 20 Mg Tab PO 05/14/21 09:59 20 mg DAILY PEDRO Administration Potassium Chloride 20 meq 04/14/21 11:30 04/18/21 08:25 Potassium Chloride 10 Meq Tablet PO 05/14/21 11:29 20 meq DAILY PEDRO Administration Simvastatin 40 mg 04/14/21 11:30 04/18/21 08:25 Simvastatin 20 Mg Tablet PO 05/14/21 11:29 40 mg DAILY PEDRO Administration Discontinued Medications Generic Name Dose Route Start Last Admin Trade Name Freq PRN Reason Stop Dose Admin Methylprednisolone Sodium 0 mg 04/13/21 18:27 04/13/21 18:51 Succinate 125 mg/ Sterile IV 04/13/21 18:28 125 mg Water 2 ml STAT ONE Administration Sodium Chloride Confirm 04/13/21 18:07 Sodium Chloride 0.9% 1000 Ml Administered 04/13/21 18:08 Dose 1,000 mls @ ud .ROUTE .STK-MED ONE Sodium Chloride 1,000 mls @ 100 mls/hr 04/13/21 18:30 04/14/21 07:15 Sodium Chloride 0.9% 1000 Ml IV 05/13/21 18:29 Not Given .Q10H PEDRO Potassium Chloride 20 meq in 100 mls @ 50 mls/hr 04/13/21 19:45 04/14/21 01:54 Potassium Chloride 20 Meq In Water 100ml IV 04/13/21 23:44 50 mls/hr Q2H PEDRO Administration Remdesivir 100 mg/ Sodium 100 mls @ 100 mls/hr 04/14/21 23:00 04/14/21 22:02 Chloride IV 04/17/21 23:59 100 mls/hr Q24H PEDRO Administration Remdesivir 200 mg/ Sodium 250 mls @ 125 mls/hr 04/13/21 22:59 04/14/21 04:40 Chloride IV 04/14/21 00:58 125 mls/hr ONCE ONE Administration Sodium Chloride Confirm 04/13/21 23:09 Sodium Chloride 0.9% 250 Ml Administered 04/13/21 23:10 Dose 250 mls @ ud IV .STK-MED ONE Remdesivir 100 mg/ Sodium 100 mls @ 100 mls/hr 04/15/21 22:00 04/17/21 22:20 Chloride IV 04/17/21 22:59 100 mls/hr HS PEDRO Administration Promethazine HCl 12.5 mg/ 100.5 mls @ 201 mls/hr 04/15/21 10:58 Sodium Chloride IV 05/15/21 10:57 Q4H PRN PRN AGITATION Potassium Chloride 20 meq in 100 mls @ 50 mls/hr 04/18/21 09:00 04/18/21 10:40 Potassium Chloride 20 Meq In Water 100ml IV 04/18/21 12:59 50 mls/hr Q2H PEDRO Administration Lisinopril 40 mg 04/15/21 10:02 04/16/21 08:55 Lisinopril 20 Mg Tablet PO 05/15/21 10:01 40 mg DAILY PEDRO Administration Lorazepam 1 mg 04/13/21 22:59 04/14/21 17:47 Lorazepam 2 Mg/1 Ml 2 Mg Vial IV 05/13/21 22:58 1 mg Q4H PRN PRN Administration Anxiety/Sleep Lorazepam 1 mg 04/13/21 22:59 04/15/21 00:46 Lorazepam 1 Mg Tablet PO 05/13/21 22:58 1 mg Q4H PRN PRN Administration Anxiety/Sleep Methylprednisolone Sodium Succinate Confirm 04/13/21 18:47 Methylprednis Sod Succ 125 Mg/2 Ml Vial Administered 04/13/21 18:48 Dose 125 mg .ROUTE .STK-MED ONE Metoprolol Tartrate 5 mg 04/14/21 22:00 04/17/21 10:22 Metoprolol Tartrate 5 Mg/5 Ml Injection IV 04/20/21 21:59 Not Given Q12H PEDRO Morphine Sulfate 2 mg 04/15/21 13:24 04/15/21 13:45 Morphine Sulfate 2 Mg/Ml Inj IV 04/15/21 13:25 2 mg ONCE ONE Administration Ondansetron HCl 4 mg 04/13/21 18:25 04/13/21 18:50 Ondansetron Hcl 4 Mg/2 Ml Vial IV 04/13/21 18:26 4 mg STAT STA Administration Ondansetron HCl Confirm 04/13/21 18:47 Ondansetron Hcl 4 Mg/2 Ml Vial Administered 04/13/21 18:48 Dose 4 mg .ROUTE .STK-MED ONE Remdesivir Confirm 04/13/21 23:09 Remdesivir 100 Mg Vial Administered 04/13/21 23:10 Dose 200 mg IV .STK-MED ONE Sterile Water Confirm 04/13/21 18:47 Water For Injection,Sterile 10 Ml Vial Administered 04/13/21 18:48 Dose 10 ml IJ .STK-MED ONE Intake & Output (Last 24 hours) 04/16/21 04/17/21 04/18/21 04/19/21 11:59 11:59 11:59 11:59 Intake Total 720 1100 720 120 Balance 720 1100 720 120 Weight 59.9 kg Microbiology Results (Last 24 hours) 04/13/21 18:41 Blood Blood Culture Gram Stain - Final Not Reportable 04/13/21 18:41 Blood Blood Culture - Final NO GROWTH 04/13/21 18:41 Blood Blood Culture Gram Stain - Final Not Reportable 04/13/21 18:41 Blood Blood Culture - Final NO GROWTH Laboratory Results (Last 24 hours) 04/18/21 04/18/21 04/18/21 04:50 04:50 04:50 WBC 7.0 RBC 4.91 Hgb 10.6 L Hct 37.0 MCV 75.4 L MCH 21.6 L MCHC 28.6 L RDW 23.7 H Plt Count 300 MPV 9.6 D-Dimer 3129 H* Sodium 134 L Potassium 2.9 L* Chloride 93 L Carbon Dioxide 34 H Anion Gap 10.3 BUN 19 H Creatinine 0.59 Estimated GFR > 60.0 Glucose 118 H Calcium 8.6 Total Bilirubin 1.00 AST 25 ALT 21 Alkaline Phosphatase 75 Serum Total Protein 5.7 L Albumin 3.2 L Orders (Last 24 hours) Category Date Time Status Discharge Routine Discharge 04/18/21 Ordered CBC DAILY Lab 04/18/21 04:50 Completed CBC DAILY Lab 04/19/21 05:00 Ordered CBC DAILY Lab 04/20/21 05:00 Ordered CBC DAILY Lab 04/21/21 05:00 Ordered CBC DAILY Lab 04/22/21 05:00 Ordered CBC DAILY Lab 04/23/21 05:00 Ordered CMP DAILY Lab 04/18/21 04:50 Completed CMP DAILY Lab 04/19/21 05:00 Ordered CMP DAILY Lab 04/20/21 05:00 Ordered CMP DAILY Lab 04/21/21 05:00 Ordered CMP DAILY Lab 04/22/21 05:00 Ordered CMP DAILY Lab 04/23/21 05:00 Ordered D-DIMER QUANTITATIVE DAILY Lab 04/18/21 04:50 Completed D-DIMER QUANTITATIVE DAILY Lab 04/19/21 05:00 Ordered D-DIMER QUANTITATIVE DAILY Lab 04/20/21 05:00 Ordered D-DIMER QUANTITATIVE DAILY Lab 04/21/21 05:00 Ordered D-DIMER QUANTITATIVE DAILY Lab 04/22/21 05:00 Ordered D-DIMER QUANTITATIVE DAILY Lab 04/23/21 05:00 Ordered Potassium (Lab Test) [Potassium] Stat Lab 04/18/21 14:40 Ordered Potassium Chloride 20Meq/100Ml [POTASSIUM CHLORIDE 20 Med 04/18/21 09:00 Discontinued mEq IN WATER 100ML] 20 meq in 100 ml IV Q2H Patient Care Notes (Last 24 hours) 04/18/21 09:36 Case Management Note by Maite Goldstein S/W - HE CONTINUES TO DENY ANY NEW NEEDS FOR PATIENT AT TIME OF DC. HE WAS OFFERED C BUT DECLINED AT THIS TIME. HE REPORTS PATIENT WILL HAVE SOMEONE WITH HER ALL THE TIMES TO ASSIST HER NEEDED Initialized on 04/18/21 09:36 - END OF NOTE - Vitals & Intake/Output Vital Signs: Vital Signs Temperature 97.9 F 04/18/21 12:00 Pulse Rate 94 H 04/18/21 12:00 Respiratory Rate 22 04/18/21 12:00 Blood Pressure 126/72 04/18/21 12:00 O2 Sat by Pulse Oximetry 97 04/18/21 12:00 Intake & Output: Intake & Output 04/16/21 04/17/21 04/18/21 04/19/21 11:59 11:59 11:59 11:59 Intake Total 720 1100 720 120 Balance 720 1100 720 120 Weight 59.9 kg - Lab Result Diagrams: 04/18/21 04:50 04/18/21 04:50 Lab Results-Last 24 Hrs: Lab Results-Last 24 Hours 04/18/21 04/18/21 04/18/21 Range/Units 04:50 04:50 04:50 WBC 7.0 (4.0-10.5) K/mm3 RBC 4.91 (4.1-5.4) M/mm3 Hgb 10.6 L (12.0-16.0) gm/dl Hct 37.0 (35-47) % MCV 75.4 L (78-100) fl MCH 21.6 L (26-32) pg MCHC 28.6 L (32-36) g/dl RDW 23.7 H (11.5-14.0) % Plt Count 300 (150-450) K/mm3 MPV 9.6 (7.5-11.0) fl D-Dimer 3129 H* (215-500) ng/mL Sodium 134 L (137-145) mmol/L Potassium 2.9 L* (3.5-5.1) mmol/L Chloride 93 L (98-107) mmol/L Carbon Dioxide 34 H (22-30) mmol/L Anion Gap 10.3 (5-15) MEQ/L BUN 19 H (7-17) mg/dL Creatinine 0.59 (0.52-1.04) mg/dL Estimated GFR > 60.0 ML/MIN Glucose 118 H (74-106) mg/dL Calcium 8.6 (8.4-10.2) mg/dL Total Bilirubin 1.00 (0.2-1.3) mg/dL AST 25 (14-36) U/L ALT 21 (0-35) U/L Alkaline Phosphatase 75 (38-126) U/L Serum Total Protein 5.7 L (6.3-8.2) g/dL Albumin 3.2 L (3.5-5.0) g/dL Micro Results-Entire Visit: Microbiology 04/13/21 18:41 Blood Culture Gram Stain - Final Blood Not Reportable Blood Culture - Final NO GROWTH 04/13/21 18:41 Blood Culture Gram Stain - Final Blood Not Reportable Blood Culture - Final NO GROWTH 04/13/21 18:25 Urine Culture - Final Urine, Catheterized Escherichia Coli - Procedures and Test Procedures and Tests throughout Hospitalization: Therapy Orders & Screens 04/14/21 01:05 Oxygen Nasal Cannula 2 lpm Comment: Diagnosis: covid Discharge Exam General Appearance: no apparent distress, alert Neurologic Exam: alert, oriented x 3, cooperative, normal mood/affect, nml cerebellar function, sensation nml, No motor deficits Eye Exam: PERRL, EOMI, eyes nml inspection Ears, Nose, Throat Exam: normal ENT inspection, pharynx normal, moist mucous membranes Neck Exam: normal inspection, non-tender, supple, full range of motion Respiratory Exam: normal breath sounds, lungs clear, No respiratory distress Cardiovascular Exam: regular rate/rhythm, normal heart sounds Gastrointestinal/Abdomen Exam: soft, No tenderness, No mass Pelvic Exam: deferred Rectal Exam: deferred Back Exam: normal inspection, normal range of motion, No CVA tenderness, No vertebral tenderness Extremity Exam: normal inspection, normal range of motion Skin Exam: normal color, warm, dry Final Diagnosis/Problem List - Final Discharge Diagnosis/Problem (1) COVID-19 virus infection Current Visit: Yes Status: Resolved Code(s): U07.1 - COVID-19 (2) Hypoxia Current Visit: Yes Status: Resolved Code(s): R09.02 - HYPOXEMIA (3) Weakness Current Visit: Yes Status: Resolved Code(s): R53.1 - WEAKNESS (4) Hypokalemia due to excessive renal loss of potassium Current Visit: Yes Status: Resolved Code(s): E87.6 - HYPOKALEMIA - Discharge Discharge Date: 04/18/21 Disposition: Home, Self-Care Condition: Stable Prescriptions: New Ciprofloxacin [Cipro 500 MG] 250 mg PO BIDAC 7 Days #14 tablet Continue Simvastatin 1 ea PO DAILY Prednisone 10 mg [Deltasone 10 mg] 1 ea PO DAILY Famotidine 20 mg [Pepcid 20 MG] 1 ea PO DAILY Carvedilol [Coreg] 3.125 mg PO DAILY Potassium Chloride [Klor-Con 10] 20 meq PO DAILY Instructions: Hypokalemia, Preventing Falls in the Older Adult, Coronavirus Disease 2019 (COVID-19) (DC), Pulse Oximetry Additional Instructions: IT IS RECOMMENDED THAT YOU GET THE COVID-19 VACCINE IN MAY. Follow up with: KWASI CLIFFORD [Primary Care Provider] - 04/29/21 9:00 am
[2021-04-18 13:50] VITALS: PULSE 95; O2SAT 96
== END 2021-04-18 16:00 | disposition home or self-care (01) | DRG 177 ==
LOC: ED 17:45 → MED SURG 20:18
PROVIDERS: ADMIT Family Medicine; ATTEND Family Medicine
DX: U07.1 COVID-19 (principal); J12.82 Pneumonia due to coronavirus disease 2019; R09.02 Hypoxemia; R53.1 Weakness; E87.6 Hypokalemia; I10 Essential (primary) hypertension; E78.00 Pure hypercholesterolemia, unspecified; D50.9 Iron deficiency anemia, unspecified; K29.70 Gastritis, unspecified, without bleeding; Z79.899 Other long term (current) drug therapy; Z79.01 Long term (current) use of anticoagulants; Z20.828 Contact with and (suspected) exposure to other viral communicable diseases
CPT/HCPCS: 36000; 36415; 36430; 71045; 71260; 74177; 80053; 81001; 83605; 83880; 84132; 84484; 85025; 85027; 85379; 86308; 86850; 86900; 86901; 86922; 87040; 87077; 87086; 87186; 87400; 87651; 93005; 94760; 94762; 96374; 96375; 99285; P9016; J0248; J1100; J1650; J1940; J2060; J2270; J2405; J2930; J3480; A9270-GY

== ENCOUNTER 2021-07-08 14:57 | Observation (INO) | payer MEDICARE ==
[2021-07-08 15:51] LABS: Absolute Neutrophil Ct (ANC) 1.96 (1.4-6.9); Basophil (Absolute #) 0.08 (0-0.4); Eosinophil % 2.8 % (0.00-5.0); Eosinophil (Absolute #) 0.11 (0-0.5); Hematocrit 19.5 % (35-47); Lymphocyte (Absolute #) 1.12 (1.0-4.6); Lymphocytes % 28.8 % (24.0-44.0); Mean Cell Volume 80.6 fl (78-100); Mean Corpuscular Hemoglobin 20.7 pg (26-32); Mean Corpuscular Hgb Concent. 25.6 g/dl (32-36); Mean Platelet Volume 9.9 fl (7.5-11.0); Monocyte (Absolute #) 0.62 (0.0-1.3); Monocytes % 15.9 % (0.0-12.0); Neutrophil % 50.4 % (36.0-66.0); Platelet Count 321 K/mm3 (150-450); Red Blood Count 2.42 M/mm3 (4.1-5.4); White Blood Count 3.9 K/mm3 (4.0-10.5)
[2021-07-08 15:58] LABS: INR 1.05 (0.8-3.0); PROTIME 12.4 SECONDS (9.4-12.5)
[2021-07-08 16:00] LABS: PTT 31.5 SECONDS (25.1-36.5)
[2021-07-08 16:02] LABS: ALBUMIN 3.7 g/dL (3.5-5.0); ALKALINE PHOSPHATASE 85 U/L (38-126); ANION GAP 13.2 MEQ/L (5-15); BLOOD UREA NITROGEN 15 mg/dL (7-17); CHLORIDE 106 mmol/L (98-107); Calcium 8.5 mg/dL (8.4-10.2); Carbon Dioxide 26 mmol/L (22-30); Creatinine 1 0.62 mg/dL (0.52-1.04); EST GLOMERULAR FILTRATION RATE > 60.0 ML/MIN; Glucose 109 mg/dL (74-106); Potassium 3.9 mmol/L (3.5-5.1); SGOT/AST 31 U/L (14-36); SGPT/ALT 16 U/L (0-35); SODIUM 141 mmol/L (137-145); Total Protein 6.1 g/dL (6.3-8.2)
--- NOTE | 2021-07-08 16:25 | ERPHSYRPT ---
- History of Present Illness Time Seen by Provider: 07/08/21 16:21 Source: patient Exam Limitations: no limitations Patient Subjective Stated Complaint: pt here for abnormal labs, her hgb was 5.2. she states she has been sob and legs aching , denies any nause, no blood in stools Triage Nursing Assessment: pt alert, resp easy, skin war,dry,pale, face mask in place, abd soft and non tender, she states had a stomach ucler in and is not on any stomach meds Physician History: Patient is a 75-year-old white female patient of Dr. Lorenzo who presented to the office for routine blood work and was found to have a hemoglobin of 5.1 she also complained of increased shortness of breath recently. She did receive a transfusion and April of this year. Because of her anemia in April was not elucidated. She does have a history of stomach ulcers in the past but is untreated for that at present. She denies any dark melanotic stools. Associated Symptoms: heartburn Allergies/Adverse Reactions: No Known Drug Allergies Allergy (Verified 07/08/21 15:16) Home Medications: Carvedilol [Coreg] 3.125 mg PO DAILY 04/13/21 [History] Simvastatin 1 ea PO DAILY 04/13/21 [History] Potassium Chloride [Klor-Con 10] 10 meq PO DAILY 07/08/21 [History] Hx Influenza Vaccination/Date Given: Yes (fall 2012) Hx Pneumococcal Vaccination/Date Given: No Immunizations Up to Date: Yes Travel Risk - International Travel Have you traveled outside of the country in past 3 weeks: No - Coronavirus Screening Are you exhibiting any of the following symptoms?: No Close contact with a COVID-19 positive Pt in past 14-21 Days: No - Vaccine Status Have you recieved a Covid-19 vaccination: No - Review of Systems Constitutional: No Fever, No Chills Eyes: No Symptoms Ears, Nose, & Throat: No Symptoms Respiratory: No Cough, No Dyspnea Cardiac: No Chest Pain, No Edema, No Syncope Abdominal/Gastrointestinal: No Abdominal Pain, No Nausea, No Vomiting, No Diarrhea Genitourinary Symptoms: No Dysuria Musculoskeletal: No Back Pain, No Neck Pain Skin: No Rash Neurological: No Dizziness, No Focal Weakness, No Sensory Changes Psychological: No Symptoms Endocrine: No Symptoms All Other Systems: Reviewed and Negative - Past Medical History Pertinent Past Medical History: Yes Neurological History: No Pertinent History ENT History: No Pertinent History Cardiac History: Hypertension Respiratory History: No Pertinent History Endocrine Medical History: No Pertinent History Musculoskeletal History: No Pertinent History GI Medical History: Esophageal Disorder, Hernia, Ulcer History: No Pertinent History Psycho-Social History: No Pertinent History Female Reproductive Disorders: Other Other Medical History: abnormal uterine cell/hyster - Past Surgical History Past Surgical History: Yes Neuro Surgical History: No Pertinent History Cardiac: No Pertinent History Respiratory: No Pertinent History Gastrointestinal: No Pertinent History Genitourinary: No Pertinent History Musculoskeletal: Other Female Surgical History: Hysterectomy Other Surgical History: right foot/toe joint replacement. prervious EGD in may 2013 - Social History Smoking Status: Never smoker Exposure to second hand smoke: No Drug Use: none Patient Lives Alone: No - Nursing Vital Signs Nursing Vital Signs: Pain Scale Pain Intensity 2 - Physical Exam General Appearance: no apparent distress, alert Eye Exam: PERRL/EOMI, pale conjunctivae Ears, Nose, Throat Exam: normal ENT inspection, TMs normal, pharynx normal, moist mucous membranes Neck Exam: normal inspection, non-tender, supple, full range of motion Respiratory Exam: normal breath sounds, lungs clear, No respiratory distress Cardiovascular Exam: regular rate/rhythm, normal heart sounds, normal peripheral pulses Gastrointestinal/Abdomen Exam: soft, normal bowel sounds, No tenderness, No mass Back Exam: normal inspection, normal range of motion, No CVA tenderness, No vertebral tenderness Extremity Exam: normal inspection, normal range of motion, pelvis stable Neurologic Exam: alert, oriented x 3, cooperative, normal mood/affect, nml cerebellar function, nml station & gait, sensation nml, No motor deficits Skin Exam: normal color, warm, dry, No rash Lymphatic Exam: No adenopathy - Course Nursing assessment & vital signs reviewed: Yes Ordered Tests: Active Orders 24 hr Category Date Time Status IV Insertion STAT Care 07/08/21 15:29 Active IV Insertion-2nd Peripheral STAT Care 07/08/21 15:29 Active CBC W DIFF Stat Lab 07/08/21 15:25 Completed CMP Stat Lab 07/08/21 15:25 Completed FECAL OCCULT BLOOD - SCREENING Stat Lab 07/08/21 15:04 Ordered Lactic Acid Stat Lab 07/08/21 15:03 Completed PROTIME WITH INR Stat Lab 07/08/21 15:25 Results PTT Stat Lab 07/08/21 15:25 Results UA W/RFX CULTURE Stat Lab 07/08/21 Ordered Lab/Rad Data: Laboratory Result Diagrams 07/08/21 15:25 07/08/21 15:25 Laboratory Results 07/08/21 07/08/21 07/08/21 Range/Units 15:25 15:25 15:25 WBC 3.9 L (4.0-10.5) K/mm3 RBC 2.42 L (4.1-5.4) M/mm3 Hgb 5.0 L* (12.0-16.0) gm/dl Hct 19.5 L (35-47) % MCV 80.6 (78-100) fl MCH 20.7 L (26-32) pg MCHC 25.6 L (32-36) g/dl RDW 18.0 H (11.5-14.0) % Plt Count 321 (150-450) K/mm3 MPV 9.9 (7.5-11.0) fl Gran % 50.4 (36.0-66.0) % Eos # (Auto) 0.11 (0-0.5) Absolute Lymphs (auto) 1.12 (1.0-4.6) Absolute Monos (auto) 0.62 (0.0-1.3) Lymphocytes % 28.8 (24.0-44.0) % Monocytes % 15.9 H (0.0-12.0) % Eosinophils % 2.8 (0.00-5.0) % Basophils % 2.1 (0.0-0.4) % Absolute Granulocytes 1.96 (1.4-6.9) Basophils # 0.08 (0-0.4) PT 12.4 (9.4-12.5) SECONDS INR 1.05 (0.8-3.0) APTT Pending Sodium 141 (137-145) mmol/L Potassium 3.9 (3.5-5.1) mmol/L Chloride 106 (98-107) mmol/L Carbon Dioxide 26 (22-30) mmol/L Anion Gap 13.2 (5-15) MEQ/L BUN 15 (7-17) mg/dL Creatinine 0.62 (0.52-1.04) mg/dL Estimated GFR > 60.0 ML/MIN Glucose 109 H (74-106) mg/dL Lactic Acid (0.4-2.0) Calcium 8.5 (8.4-10.2) mg/dL Total Bilirubin 0.50 (0.2-1.3) mg/dL AST 31 (14-36) U/L ALT 16 (0-35) U/L Alkaline Phosphatase 85 (38-126) U/L Serum Total Protein 6.1 L (6.3-8.2) g/dL Albumin 3.7 (3.5-5.0) g/dL 07/08/21 Range/Units 15:03 WBC (4.0-10.5) K/mm3 RBC (4.1-5.4) M/mm3 Hgb (12.0-16.0) gm/dl Hct (35-47) % MCV (78-100) fl MCH (26-32) pg MCHC (32-36) g/dl RDW (11.5-14.0) % Plt Count (150-450) K/mm3 MPV (7.5-11.0) fl Gran % (36.0-66.0) % Eos # (Auto) (0-0.5) Absolute Lymphs (auto) (1.0-4.6) Absolute Monos (auto) (0.0-1.3) Lymphocytes % (24.0-44.0) % Monocytes % (0.0-12.0) % Eosinophils % (0.00-5.0) % Basophils % (0.0-0.4) % Absolute Granulocytes (1.4-6.9) Basophils # (0-0.4) PT (9.4-12.5) SECONDS INR (0.8-3.0) APTT Sodium (137-145) mmol/L Potassium (3.5-5.1) mmol/L Chloride (98-107) mmol/L Carbon Dioxide (22-30) mmol/L Anion Gap (5-15) MEQ/L BUN (7-17) mg/dL Creatinine (0.52-1.04) mg/dL Estimated GFR ML/MIN Glucose (74-106) mg/dL Lactic Acid 2.1 H (0.4-2.0) Calcium (8.4-10.2) mg/dL Total Bilirubin (0.2-1.3) mg/dL AST (14-36) U/L ALT (0-35) U/L Alkaline Phosphatase (38-126) U/L Serum Total Protein (6.3-8.2) g/dL Albumin (3.5-5.0) g/dL - Progress Progress: unchanged Discussed with Dr.: Roberson (Discussed with Dr. Suero will admit for transfusion.) - Departure Departure Disposition: Observation Clinical Impression: Anemia Condition: Stable Critical Care Time: No Referrals: KWASI CLIFFORD [Primary Care Provider] - Follow up/PCP as directed
[2021-07-08] MEDS ORDERED: Sodium Chloride 0.9% 1000 ML 1,000 ML IV SCH (16:30)
[2021-07-08 16:33] LABS: ABO TYPING O; Antibody Screen NEGATIVE (NEGATIVE); RH TYPING POSITIVE
[2021-07-08 16:34] LABS: CROSS MATCH (PRBC) COMPATIBLE (COMPATIBLE)
[2021-07-08 16:39] LABS: INFLUENZA A NEGATIVE (NEGATIVE); INFLUENZA B NEGATIVE (NEGATIVE); RESPIRATORY SYNCTIAL VIRUS NEGATIVE (Negative); SARS-CoV-2 Xpert Express NEGATIVE (NEGATIVE)
[2021-07-08] MEDS ORDERED: APRESOLINE 20 MG/ML INJ IV PRN (20:01)
[2021-07-08] MEDS ORDERED: PROTONIX 40 MG IV IV ONE (20:43)
[2021-07-08] MEDS ORDERED: Sodium Chloride 0.9% 500 ML 500 ML IV ONE (20:43)
[2021-07-08] MEDS: Lasix 20 MG/2 ML IV ONE (20:57)
[2021-07-08] MEDS: Klor Con 10 MEQ PO SCH (20:57)
[2021-07-08] MEDS: Coreg 3.125 MG PO SCH (20:57)
[2021-07-08] MEDS: PROTONIX 40 MG IV*** 80 MG in Sodium Chloride 0.9% 500 ML 500 ML IV SCH (21:19)
[2021-07-08 21:46] LABS: Bacteria RARE /HPF (NEGATIVE); Epithelial Cells RARE /HPF (FEW)
[2021-07-08 21:47] LABS: Appearance CLEAR (CLEAR); Bilirubin NEGATIVE (NEGATIVE); Dipstick done @ ? MAIN LAB; Glucose NEGATIVE (NEGATIVE); Ketones NEGATIVE (NEGATIVE); Nitrite NEGATIVE (NEGATIVE); Protein,Urine Dip NEGATIVE (Negative); RBC NEGATIVE Ery/ul (0-5); Urobilinogen 0.2 mg/dL (0-1)
[2021-07-08 21:48] LABS: Urine Cultured Indicated? NO
[2021-07-08] MEDS ORDERED: Pepcid 20 MG PO SCH (22:00)
[2021-07-09] MEDS: Lasix 20 MG/2 ML IV ONE ×2 (00:17→03:03)
[2021-07-09 04:58] LABS: Hematocrit 34.9 % (35-47)
[2021-07-09] MEDS ORDERED: PROTONIX 40 MG IV IV ONE (05:07)
[2021-07-09] MEDS ORDERED: Sodium Chloride 0.9% 500 ML 500 ML IV ONE (05:08)
[2021-07-09 05:10] LABS: Hemoglobin 10.5 gm/dl (12.0-16.0)
[2021-07-09] MEDS: PROTONIX 40 MG IV*** 80 MG in Sodium Chloride 0.9% 500 ML 500 ML IV SCH (05:20)
[2021-07-09 07:38] VITALS: PULSE 79; O2SAT 94
[2021-07-09 07:56] VITALS: BP 172/78
--- NOTE | 2021-07-09 08:48 | PCM.SSS ---
History of Present Illness - Chief Complaint Chief Complaint: anemia History of Present Illness: is a 75 year old female with PMHx COPD, chronic pancreatitis, htn, hyperlipidemia and hx PUD who was admitted through ER with anemia. She came to see me in office yesterday and c/o being short of breath. She was found to have hgb 5.2 - on recheck in ER it was 5.0. She was admitted and got 3 units of PRBC; this morning her hgb is 10.5 and she is feeling much better. Has been on protonix drip here. She denies any melena or hematochezia or diarrhea, although she had a BM (which was sent for FiOB) and staff said it was firm and dark. She denies taking ASA, advil, or naproxen regularly. She does have a hx of PUD. She had covid and a hospital admission in Apr 2021 - had to have blood transfusion at that time. We talked at length about pt having an EGD/colonoscopy and/or referral to hematology, depending on results. She was reluctant to have any procedures done; we discussed some more and she said she would not under any circumstances want surgery. She does not want to do a colonoscopy/EGD, although we may find something (like a polyp) that could be removed during the procedure. We decided to check her CBC next week and monthly thereafter, and discussed that she will continue to need transfusions and that I have no idea what her life expectancy is going forward since I don't know what's causing the bleeding. Will send pt home on po iron and PPI. - Review of Systems Constitutional: Weakness Respiratory: Short Of Breath Cardiac: Other (heart murmu) Endocrine: Hair Changes (alopecia recently) Medications & Allergies Home Medications: Home Medication List Carvedilol [Coreg] 3.125 mg PO BID 04/13/21 [History Confirmed 07/08/21] Simvastatin 40 mg PO DAILY 04/13/21 [History Confirmed 07/08/21] Famotidine 20 mg [Pepcid 20 MG] 20 mg PO HS 07/08/21 [History Confirmed 07/08/21] Potassium Chloride [Klor-Con 10] 10 meq PO BID 07/08/21 [History Confirmed 07/08/21] Ferrous Sulfate 325 mg [Feosol 325 mg] 325 mg PO BID #60 tablet 07/09/21 [Rx] PANTOPRAZOLE 40 mg Tablet [Protonix 40MG Tablet] 40 mg PO BID #60 tab 07/09/21 [Rx] Allergies/Adverse Reactions: Allergies Allergy/AdvReac Type Severity Reaction Status Date / Time No Known Drug Allergies Allergy Verified 07/08/21 15:16 - Past Medical History Past Medical History: Yes Neurological History: No Pertinent History ENT History: No Pertinent History Cardiac History: Hypertension Respiratory History: No Pertinent History Endocrine Medical History: No Pertinent History Musculoskelatal History: No Pertinent History GI Medical History: Esophageal Disorder, Hernia, Ulcer History: No Pertinent History Pyscho-Social History: No Pertinent History Reproductive Disorders: Other Comment: abnormal uterine cell/hyster - Female History Are you now?: No - Past Surgical History Past Surgical History: Yes Neuro Surgical History: No Pertinent History Cardiac History: No Pertinent History Respiratory Surgery: No Pertinent History GI Surgical History: No Pertinent History Genitourinary Surgical Hx: No Pertinent History Musculskeletal Surgical Hx: Other Female Surgical History: Hysterectomy Other Surgical History: right foot/toe joint replacement. prervious EGD in may 2013 - Social History Smoking Status: Never smoker Exposure to second hand smoke: No Alcohol: None Drug Use: none - Physical Exam Vital Signs: Vital Signs - 24 hr Temp Pulse Resp BP BP Pulse Ox 07/09/21 07:56 172/78 07/09/21 07:00 98.4 F 79 19 183/73 94 L 07/09/21 03:10 98.9 F 80 16 165/77 95 07/09/21 02:00 98.5 F 84 16 154/70 148/72 95 07/09/21 00:22 98.8 F 82 16 178/70 96 07/08/21 22:25 98.5 F 84 16 154/70 95 07/08/21 20:00 98.6 F 95 H 20 174/70 96 07/08/21 18:06 98.6 F 97 H 18 148/72 97 07/08/21 18:00 98.6 F 93 H 20 148/72 07/08/21 16:20 97 H 18 152/67 97 General Appearance: no apparent distress, alert Neurologic Exam: oriented x 3, cooperative Eye Exam: eyes nml inspection Ears, Nose, Throat Exam: moist mucous membranes Neck Exam: normal inspection Respiratory Exam: normal breath sounds, lungs clear, No crackles/rales, No rhonchi, No wheezing Cardiovascular Exam: regular rate/rhythm, normal heart sounds, No murmur Gastrointestinal/Abdomen Exam: soft, normal bowel sounds, No tenderness, No distention, No mass, No guarding, No rebound Extremity Exam: normal inspection, No pedal edema, No swelling Skin Exam: normal color, warm, dry, No rash Results - Labs Lab/Micro Results: Lab Results-Last 24 Hours 07/08/21 07/08/21 07/08/21 Range/Units 15:03 15:25 15:25 WBC 3.9 L (4.0-10.5) K/mm3 RBC 2.42 L (4.1-5.4) M/mm3 Hgb 5.0 L* (12.0-16.0) gm/dl Hct 19.5 L (35-47) % MCV 80.6 (78-100) fl MCH 20.7 L (26-32) pg MCHC 25.6 L (32-36) g/dl RDW 18.0 H (11.5-14.0) % Plt Count 321 (150-450) K/mm3 MPV 9.9 (7.5-11.0) fl Gran % 50.4 (36.0-66.0) % Eos # (Auto) 0.11 (0-0.5) Absolute Lymphs (auto) 1.12 (1.0-4.6) Absolute Monos (auto) 0.62 (0.0-1.3) Lymphocytes % 28.8 (24.0-44.0) % Monocytes % 15.9 H (0.0-12.0) % Eosinophils % 2.8 (0.00-5.0) % Basophils % 2.1 (0.0-0.4) % Absolute Granulocytes 1.96 (1.4-6.9) Basophils # 0.08 (0-0.4) PT (9.4-12.5) SECONDS INR (0.8-3.0) APTT (25.1-36.5) SECONDS Sodium 141 (137-145) mmol/L Potassium 3.9 (3.5-5.1) mmol/L Chloride 106 (98-107) mmol/L Carbon Dioxide 26 (22-30) mmol/L Anion Gap 13.2 (5-15) MEQ/L BUN 15 (7-17) mg/dL Creatinine 0.62 (0.52-1.04) mg/dL Estimated GFR > 60.0 ML/MIN Glucose 109 H (74-106) mg/dL Lactic Acid 2.1 H (0.4-2.0) Calcium 8.5 (8.4-10.2) mg/dL Total Bilirubin 0.50 (0.2-1.3) mg/dL AST 31 (14-36) U/L ALT 16 (0-35) U/L Alkaline Phosphatase 85 (38-126) U/L Serum Total Protein 6.1 L (6.3-8.2) g/dL Albumin 3.7 (3.5-5.0) g/dL Urinalys Dipstick Clnc Urine Color (YELLOW) Urine Appearance (CLEAR) Urine pH (5-6) Ur Specific [place] (1.005-1.025) POC Urine Protein Conf (Negative) Urine Ketones (NEGATIVE) Urine Nitrite (NEGATIVE) Urine Bilirubin (NEGATIVE) Urine Urobilinogen (0-1) mg/dL Urine Leukocytes (NEGATIVE) Urine WBC (Auto) (0-5) /HPF Urine RBC (Auto) (0-2) /HPF U Epithel Cells (Auto) (FEW) /HPF Urine Bacteria (Auto) (NEGATIVE) /HPF Urine RBC (0-5) Raj/ul Ur Culture Indicated? Urine Glucose (NEGATIVE) mg/dL Stool Occult Blood (NEGATIVE) Influenza Type A Ag (NEGATIVE) Influenza Type B Ag (NEGATIVE) RSV (PCR) (Negative) SARS-CoV-2 (PCR) (NEGATIVE) ABO Group Rh Factor Antibody Screen (NEGATIVE) Crossmatch (COMPATIBLE) 07/08/21 07/08/21 07/08/21 Range/Units 15:25 15:25 15:25 WBC (4.0-10.5) K/mm3 RBC (4.1-5.4) M/mm3 Hgb (12.0-16.0) gm/dl Hct (35-47) % MCV (78-100) fl MCH (26-32) pg MCHC (32-36) g/dl RDW (11.5-14.0) % Plt Count (150-450) K/mm3 MPV (7.5-11.0) fl Gran % (36.0-66.0) % Eos # (Auto) (0-0.5) Absolute Lymphs (auto) (1.0-4.6) Absolute Monos (auto) (0.0-1.3) Lymphocytes % (24.0-44.0) % Monocytes % (0.0-12.0) % Eosinophils % (0.00-5.0) % Basophils % (0.0-0.4) % Absolute Granulocytes (1.4-6.9) Basophils # (0-0.4) PT 12.4 (9.4-12.5) SECONDS INR 1.05 (0.8-3.0) APTT 31.5 (25.1-36.5) SECONDS Sodium (137-145) mmol/L Potassium (3.5-5.1) mmol/L Chloride (98-107) mmol/L Carbon Dioxide (22-30) mmol/L Anion Gap (5-15) MEQ/L BUN (7-17) mg/dL Creatinine (0.52-1.04) mg/dL Estimated GFR ML/MIN Glucose (74-106) mg/dL Lactic Acid (0.4-2.0) Calcium (8.4-10.2) mg/dL Total Bilirubin (0.2-1.3) mg/dL AST (14-36) U/L ALT (0-35) U/L Alkaline Phosphatase (38-126) U/L Serum Total Protein (6.3-8.2) g/dL Albumin (3.5-5.0) g/dL Urinalys Dipstick Clnc Urine Color (YELLOW) Urine Appearance (CLEAR) Urine pH (5-6) Ur Specific [place] (1.005-1.025) POC Urine Protein Conf (Negative) Urine Ketones (NEGATIVE) Urine Nitrite (NEGATIVE) Urine Bilirubin (NEGATIVE) Urine Urobilinogen (0-1) mg/dL Urine Leukocytes (NEGATIVE) Urine WBC (Auto) (0-5) /HPF Urine RBC (Auto) (0-2) /HPF U Epithel Cells (Auto) (FEW) /HPF Urine Bacteria (Auto) (NEGATIVE) /HPF Urine RBC (0-5) Raj/ul Ur Culture Indicated? Urine Glucose (NEGATIVE) mg/dL Stool Occult Blood (NEGATIVE) Influenza Type A Ag (NEGATIVE) Influenza Type B Ag (NEGATIVE) RSV (PCR) (Negative) SARS-CoV-2 (PCR) (NEGATIVE) ABO Group O Rh Factor POSITIVE Antibody Screen NEGATIVE (NEGATIVE) Crossmatch COMPATIBLE COMPATIBLE (COMPATIBLE) 07/08/21 07/08/21 07/08/21 Range/Units 15:25 15:45 17:30 WBC (4.0-10.5) K/mm3 RBC (4.1-5.4) M/mm3 Hgb (12.0-16.0) gm/dl Hct (35-47) % MCV (78-100) fl MCH (26-32) pg MCHC (32-36) g/dl RDW (11.5-14.0) % Plt Count (150-450) K/mm3 MPV (7.5-11.0) fl Gran % (36.0-66.0) % Eos # (Auto) (0-0.5) Absolute Lymphs (auto) (1.0-4.6) Absolute Monos (auto) (0.0-1.3) Lymphocytes % (24.0-44.0) % Monocytes % (0.0-12.0) % Eosinophils % (0.00-5.0) % Basophils % (0.0-0.4) % Absolute Granulocytes (1.4-6.9) Basophils # (0-0.4) PT (9.4-12.5) SECONDS INR (0.8-3.0) APTT (25.1-36.5) SECONDS Sodium (137-145) mmol/L Potassium (3.5-5.1) mmol/L Chloride (98-107) mmol/L Carbon Dioxide (22-30) mmol/L Anion Gap (5-15) MEQ/L BUN (7-17) mg/dL Creatinine (0.52-1.04) mg/dL Estimated GFR ML/MIN Glucose (74-106) mg/dL Lactic Acid 0.5 (0.4-2.0) Calcium (8.4-10.2) mg/dL Total Bilirubin (0.2-1.3) mg/dL AST (14-36) U/L ALT (0-35) U/L Alkaline Phosphatase (38-126) U/L Serum Total Protein (6.3-8.2) g/dL Albumin (3.5-5.0) g/dL Urinalys Dipstick Clnc Urine Color (YELLOW) Urine Appearance (CLEAR) Urine pH (5-6) Ur Specific [place] (1.005-1.025) POC Urine Protein Conf (Negative) Urine Ketones (NEGATIVE) Urine Nitrite (NEGATIVE) Urine Bilirubin (NEGATIVE) Urine Urobilinogen (0-1) mg/dL Urine Leukocytes (NEGATIVE) Urine WBC (Auto) (0-5) /HPF Urine RBC (Auto) (0-2) /HPF U Epithel Cells (Auto) (FEW) /HPF Urine Bacteria (Auto) (NEGATIVE) /HPF Urine RBC (0-5) Raj/ul Ur Culture Indicated? Urine Glucose (NEGATIVE) mg/dL Stool Occult Blood (NEGATIVE) Influenza Type A Ag NEGATIVE (NEGATIVE) Influenza Type B Ag NEGATIVE (NEGATIVE) RSV (PCR) NEGATIVE (Negative) SARS-CoV-2 (PCR) NEGATIVE (NEGATIVE) ABO Group Rh Factor Antibody Screen (NEGATIVE) Crossmatch COMPATIBLE (COMPATIBLE) 07/08/21 07/09/21 07/09/21 Range/Units 21:40 04:20 08:00 WBC (4.0-10.5) K/mm3 RBC (4.1-5.4) M/mm3 Hgb 10.5 L D (12.0-16.0) gm/dl Hct 34.9 L (35-47) % MCV (78-100) fl MCH (26-32) pg MCHC (32-36) g/dl RDW (11.5-14.0) % Plt Count (150-450) K/mm3 MPV (7.5-11.0) fl Gran % (36.0-66.0) % Eos # (Auto) (0-0.5) Absolute Lymphs (auto) (1.0-4.6) Absolute Monos (auto) (0.0-1.3) Lymphocytes % (24.0-44.0) % Monocytes % (0.0-12.0) % Eosinophils % (0.00-5.0) % Basophils % (0.0-0.4) % Absolute Granulocytes (1.4-6.9) Basophils # (0-0.4) PT (9.4-12.5) SECONDS INR (0.8-3.0) APTT (25.1-36.5) SECONDS Sodium (137-145) mmol/L Potassium (3.5-5.1) mmol/L Chloride (98-107) mmol/L Carbon Dioxide (22-30) mmol/L Anion Gap (5-15) MEQ/L BUN (7-17) mg/dL Creatinine (0.52-1.04) mg/dL Estimated GFR ML/MIN Glucose (74-106) mg/dL Lactic Acid (0.4-2.0) Calcium (8.4-10.2) mg/dL Total Bilirubin (0.2-1.3) mg/dL AST (14-36) U/L ALT (0-35) U/L Alkaline Phosphatase (38-126) U/L Serum Total Protein (6.3-8.2) g/dL Albumin (3.5-5.0) g/dL Urinalys Dipstick Clnc MAIN LAB Urine Color YELLOW (YELLOW) Urine Appearance CLEAR (CLEAR) Urine pH 7.0 (5-6) Ur Specific [place] 1.020 (1.005-1.025) POC Urine Protein Conf NEGATIVE (Negative) Urine Ketones NEGATIVE (NEGATIVE) Urine Nitrite NEGATIVE (NEGATIVE) Urine Bilirubin NEGATIVE (NEGATIVE) Urine Urobilinogen 0.2 (0-1) mg/dL Urine Leukocytes TRACE (NEGATIVE) Urine WBC (Auto) NONE (0-5) /HPF Urine RBC (Auto) NONE (0-2) /HPF U Epithel Cells (Auto) RARE (FEW) /HPF Urine Bacteria (Auto) RARE (NEGATIVE) /HPF Urine RBC NEGATIVE (0-5) Raj/ul Ur Culture Indicated? NO Urine Glucose NEGATIVE (NEGATIVE) mg/dL Stool Occult Blood NEGATIVE (NEGATIVE) Influenza Type A Ag (NEGATIVE) Influenza Type B Ag (NEGATIVE) RSV (PCR) (Negative) SARS-CoV-2 (PCR) (NEGATIVE) ABO Group Rh Factor Antibody Screen (NEGATIVE) Crossmatch (COMPATIBLE) Assessment/Plan (1) Anemia Current Visit: Yes Status: Acute Qualifiers: Anemia type: unspecified type Qualified Code(s): D64.9 - Anemia, unspecified Assessment & Plan: I anticipate she has chronic GI losses; FIOB pending. Pt does NOT want EGD/colonoscopy or any surgery under any circumstances. Will send home on Fe and PPI; recheck CBC in 1 week then monthly. Code(s): D64.9 - ANEMIA, UNSPECIFIED (2) SOB (shortness of breath) Current Visit: Yes Status: Resolved Code(s): R06.02 - SHORTNESS OF BREATH Hospital Summary - Hospital Course Hospital Course: Pt admitted with Hgb 5.0, given 3 units of blood with hgb now 10.5. Refusing EGD/colonoscopy, doesn't want any surgery under any circumstances. Will continue to watch hgb and transfuse as necessary. Home on Fe and PPI. - Vitals & Intake/Output Vital Signs: Vital Signs Temperature 98.4 F 07/09/21 07:00 Pulse Rate 79 07/09/21 07:00 Respiratory Rate 19 07/09/21 07:00 Blood Pressure 172/78 07/09/21 07:56 O2 Sat by Pulse Oximetry 94 L 07/09/21 07:00 Intake & Output: Intake & Output 07/06/21 07/07/21 07/08/21 07/09/21 11:59 11:59 11:59 11:59 Intake Total 2442 Output Total 3550 Balance -1108 Weight 65.8 kg - Lab Result Diagrams: 07/09/21 04:20 07/08/21 15:25 Lab Results-Last 24 Hrs: Lab Results-Last 24 Hours 07/08/21 07/08/21 07/08/21 Range/Units 15:03 15:25 15:25 WBC 3.9 L (4.0-10.5) K/mm3 RBC 2.42 L (4.1-5.4) M/mm3 Hgb 5.0 L* (12.0-16.0) gm/dl Hct 19.5 L (35-47) % MCV 80.6 (78-100) fl MCH 20.7 L (26-32) pg MCHC 25.6 L (32-36) g/dl RDW 18.0 H (11.5-14.0) % Plt Count 321 (150-450) K/mm3 MPV 9.9 (7.5-11.0) fl Gran % 50.4 (36.0-66.0) % Eos # (Auto) 0.11 (0-0.5) Absolute Lymphs (auto) 1.12 (1.0-4.6) Absolute Monos (auto) 0.62 (0.0-1.3) Lymphocytes % 28.8 (24.0-44.0) % Monocytes % 15.9 H (0.0-12.0) % Eosinophils % 2.8 (0.00-5.0) % Basophils % 2.1 (0.0-0.4) % Absolute Granulocytes 1.96 (1.4-6.9) Basophils # 0.08 (0-0.4) PT (9.4-12.5) SECONDS INR (0.8-3.0) APTT (25.1-36.5) SECONDS Sodium 141 (137-145) mmol/L Potassium 3.9 (3.5-5.1) mmol/L Chloride 106 (98-107) mmol/L Carbon Dioxide 26 (22-30) mmol/L Anion Gap 13.2 (5-15) MEQ/L BUN 15 (7-17) mg/dL Creatinine 0.62 (0.52-1.04) mg/dL Estimated GFR > 60.0 ML/MIN Glucose 109 H (74-106) mg/dL Lactic Acid 2.1 H (0.4-2.0) Calcium 8.5 (8.4-10.2) mg/dL Total Bilirubin 0.50 (0.2-1.3) mg/dL AST 31 (14-36) U/L ALT 16 (0-35) U/L Alkaline Phosphatase 85 (38-126) U/L Serum Total Protein 6.1 L (6.3-8.2) g/dL Albumin 3.7 (3.5-5.0) g/dL Urinalys Dipstick Clnc Urine Color (YELLOW) Urine Appearance (CLEAR) Urine pH (5-6) Ur Specific [place] (1.005-1.025) POC Urine Protein Conf (Negative) Urine Ketones (NEGATIVE) Urine Nitrite (NEGATIVE) Urine Bilirubin (NEGATIVE) Urine Urobilinogen (0-1) mg/dL Urine Leukocytes (NEGATIVE) Urine WBC (Auto) (0-5) /HPF Urine RBC (Auto) (0-2) /HPF U Epithel Cells (Auto) (FEW) /HPF Urine Bacteria (Auto) (NEGATIVE) /HPF Urine RBC (0-5) Raj/ul Ur Culture Indicated? Urine Glucose (NEGATIVE) mg/dL Stool Occult Blood (NEGATIVE) Influenza Type A Ag (NEGATIVE) Influenza Type B Ag (NEGATIVE) RSV (PCR) (Negative) SARS-CoV-2 (PCR) (NEGATIVE) ABO Group Rh Factor Antibody Screen (NEGATIVE) Crossmatch (COMPATIBLE) 07/08/21 07/08/21 07/08/21 Range/Units 15:25 15:25 15:25 WBC (4.0-10.5) K/mm3 RBC (4.1-5.4) M/mm3 Hgb (12.0-16.0) gm/dl Hct (35-47) % MCV (78-100) fl MCH (26-32) pg MCHC (32-36) g/dl RDW (11.5-14.0) % Plt Count (150-450) K/mm3 MPV (7.5-11.0) fl Gran % (36.0-66.0) % Eos # (Auto) (0-0.5) Absolute Lymphs (auto) (1.0-4.6) Absolute Monos (auto) (0.0-1.3) Lymphocytes % (24.0-44.0) % Monocytes % (0.0-12.0) % Eosinophils % (0.00-5.0) % Basophils % (0.0-0.4) % Absolute Granulocytes (1.4-6.9) Basophils # (0-0.4) PT 12.4 (9.4-12.5) SECONDS INR 1.05 (0.8-3.0) APTT 31.5 (25.1-36.5) SECONDS Sodium (137-145) mmol/L Potassium (3.5-5.1) mmol/L Chloride (98-107) mmol/L Carbon Dioxide (22-30) mmol/L Anion Gap (5-15) MEQ/L BUN (7-17) mg/dL Creatinine (0.52-1.04) mg/dL Estimated GFR ML/MIN Glucose (74-106) mg/dL Lactic Acid (0.4-2.0) Calcium (8.4-10.2) mg/dL Total Bilirubin (0.2-1.3) mg/dL AST (14-36) U/L ALT (0-35) U/L Alkaline Phosphatase (38-126) U/L Serum Total Protein (6.3-8.2) g/dL Albumin (3.5-5.0) g/dL Urinalys Dipstick Clnc Urine Color (YELLOW) Urine Appearance (CLEAR) Urine pH (5-6) Ur Specific [place] (1.005-1.025) POC Urine Protein Conf (Negative) Urine Ketones (NEGATIVE) Urine Nitrite (NEGATIVE) Urine Bilirubin (NEGATIVE) Urine Urobilinogen (0-1) mg/dL Urine Leukocytes (NEGATIVE) Urine WBC (Auto) (0-5) /HPF Urine RBC (Auto) (0-2) /HPF U Epithel Cells (Auto) (FEW) /HPF Urine Bacteria (Auto) (NEGATIVE) /HPF Urine RBC (0-5) Raj/ul Ur Culture Indicated? Urine Glucose (NEGATIVE) mg/dL Stool Occult Blood (NEGATIVE) Influenza Type A Ag (NEGATIVE) Influenza Type B Ag (NEGATIVE) RSV (PCR) (Negative) SARS-CoV-2 (PCR) (NEGATIVE) ABO Group O Rh Factor POSITIVE Antibody Screen NEGATIVE (NEGATIVE) Crossmatch COMPATIBLE COMPATIBLE (COMPATIBLE) 07/08/21 07/08/21 07/08/21 Range/Units 15:25 15:45 17:30 WBC (4.0-10.5) K/mm3 RBC (4.1-5.4) M/mm3 Hgb (12.0-16.0) gm/dl Hct (35-47) % MCV (78-100) fl MCH (26-32) pg MCHC (32-36) g/dl RDW (11.5-14.0) % Plt Count (150-450) K/mm3 MPV (7.5-11.0) fl Gran % (36.0-66.0) % Eos # (Auto) (0-0.5) Absolute Lymphs (auto) (1.0-4.6) Absolute Monos (auto) (0.0-1.3) Lymphocytes % (24.0-44.0) % Monocytes % (0.0-12.0) % Eosinophils % (0.00-5.0) % Basophils % (0.0-0.4) % Absolute Granulocytes (1.4-6.9) Basophils # (0-0.4) PT (9.4-12.5) SECONDS INR (0.8-3.0) APTT (25.1-36.5) SECONDS Sodium (137-145) mmol/L Potassium (3.5-5.1) mmol/L Chloride (98-107) mmol/L Carbon Dioxide (22-30) mmol/L Anion Gap (5-15) MEQ/L BUN (7-17) mg/dL Creatinine (0.52-1.04) mg/dL Estimated GFR ML/MIN Glucose (74-106) mg/dL Lactic Acid 0.5 (0.4-2.0) Calcium (8.4-10.2) mg/dL Total Bilirubin (0.2-1.3) mg/dL AST (14-36) U/L ALT (0-35) U/L Alkaline Phosphatase (38-126) U/L Serum Total Protein (6.3-8.2) g/dL Albumin (3.5-5.0) g/dL Urinalys Dipstick Clnc Urine Color (YELLOW) Urine Appearance (CLEAR) Urine pH (5-6) Ur Specific [place] (1.005-1.025) POC Urine Protein Conf (Negative) Urine Ketones (NEGATIVE) Urine Nitrite (NEGATIVE) Urine Bilirubin (NEGATIVE) Urine Urobilinogen (0-1) mg/dL Urine Leukocytes (NEGATIVE) Urine WBC (Auto) (0-5) /HPF Urine RBC (Auto) (0-2) /HPF U Epithel Cells (Auto) (FEW) /HPF Urine Bacteria (Auto) (NEGATIVE) /HPF Urine RBC (0-5) Raj/ul Ur Culture Indicated? Urine Glucose (NEGATIVE) mg/dL Stool Occult Blood (NEGATIVE) Influenza Type A Ag NEGATIVE (NEGATIVE) Influenza Type B Ag NEGATIVE (NEGATIVE) RSV (PCR) NEGATIVE (Negative) SARS-CoV-2 (PCR) NEGATIVE (NEGATIVE) ABO Group Rh Factor Antibody Screen (NEGATIVE) Crossmatch COMPATIBLE (COMPATIBLE) 07/08/21 07/09/21 07/09/21 Range/Units 21:40 04:20 08:00 WBC (4.0-10.5) K/mm3 RBC (4.1-5.4) M/mm3 Hgb 10.5 L D (12.0-16.0) gm/dl Hct 34.9 L (35-47) % MCV (78-100) fl MCH (26-32) pg MCHC (32-36) g/dl RDW (11.5-14.0) % Plt Count (150-450) K/mm3 MPV (7.5-11.0) fl Gran % (36.0-66.0) % Eos # (Auto) (0-0.5) Absolute Lymphs (auto) (1.0-4.6) Absolute Monos (auto) (0.0-1.3) Lymphocytes % (24.0-44.0) % Monocytes % (0.0-12.0) % Eosinophils % (0.00-5.0) % Basophils % (0.0-0.4) % Absolute Granulocytes (1.4-6.9) Basophils # (0-0.4) PT (9.4-12.5) SECONDS INR (0.8-3.0) APTT (25.1-36.5) SECONDS Sodium (137-145) mmol/L Potassium (3.5-5.1) mmol/L Chloride (98-107) mmol/L Carbon Dioxide (22-30) mmol/L Anion Gap (5-15) MEQ/L BUN (7-17) mg/dL Creatinine (0.52-1.04) mg/dL Estimated GFR ML/MIN Glucose (74-106) mg/dL Lactic Acid (0.4-2.0) Calcium (8.4-10.2) mg/dL Total Bilirubin (0.2-1.3) mg/dL AST (14-36) U/L ALT (0-35) U/L Alkaline Phosphatase (38-126) U/L Serum Total Protein (6.3-8.2) g/dL Albumin (3.5-5.0) g/dL Urinalys Dipstick Clnc MAIN LAB Urine Color YELLOW (YELLOW) Urine Appearance CLEAR (CLEAR) Urine pH 7.0 (5-6) Ur Specific [place] 1.020 (1.005-1.025) POC Urine Protein Conf NEGATIVE (Negative) Urine Ketones NEGATIVE (NEGATIVE) Urine Nitrite NEGATIVE (NEGATIVE) Urine Bilirubin NEGATIVE (NEGATIVE) Urine Urobilinogen 0.2 (0-1) mg/dL Urine Leukocytes TRACE (NEGATIVE) Urine WBC (Auto) NONE (0-5) /HPF Urine RBC (Auto) NONE (0-2) /HPF U Epithel Cells (Auto) RARE (FEW) /HPF Urine Bacteria (Auto) RARE (NEGATIVE) /HPF Urine RBC NEGATIVE (0-5) Raj/ul Ur Culture Indicated? NO Urine Glucose NEGATIVE (NEGATIVE) mg/dL Stool Occult Blood NEGATIVE (NEGATIVE) Influenza Type A Ag (NEGATIVE) Influenza Type B Ag (NEGATIVE) RSV (PCR) (Negative) SARS-CoV-2 (PCR) (NEGATIVE) ABO Group Rh Factor Antibody Screen (NEGATIVE) Crossmatch (COMPATIBLE) - Discharge Disposition: Home, Self-Care Condition: Stable Prescriptions: New Ferrous Sulfate 325 mg [Feosol 325 mg] 325 mg PO BID #60 tablet PANTOPRAZOLE 40 mg Tablet [Protonix 40MG Tablet] 40 mg PO BID #60 tab Continue Simvastatin 40 mg PO DAILY Carvedilol [Coreg] 3.125 mg PO BID Potassium Chloride [Klor-Con 10] 10 meq PO BID Famotidine 20 mg [Pepcid 20 MG] 20 mg PO HS Follow up with: KWASI CLIFFORD [Primary Care Provider] -
[2021-07-09] MEDS: Klor Con 10 MEQ PO SCH (09:17)
[2021-07-09] MEDS: Coreg 3.125 MG PO SCH (09:17)
[2021-07-09] MEDS ORDERED: ZOCOR 20MG PO SCH (10:00)
[2021-07-09 11:17] LABS: Iron 93 ug/dL (37-170); Iron Saturation 17 % (20-39); TIBC 542 ug/dL (265-462)
== END 2021-07-09 10:15 | disposition home or self-care (01) ==
LOC: ED 14:57 → MED SURG 17:05
PROVIDERS: ADMIT Family Medicine; ATTEND Family Medicine
DX: D64.9 Anemia, unspecified (principal); R06.02 Shortness of breath; J44.9 Chronic obstructive pulmonary disease, unspecified; I10 Essential (primary) hypertension; E78.5 Hyperlipidemia, unspecified; L65.9 Nonscarring hair loss, unspecified; R01.1 Cardiac murmur, unspecified; Z20.828 Contact with and (suspected) exposure to other viral communicable diseases; Z79.899 Other long term (current) drug therapy
CPT/HCPCS: 0241U; 36000; 36415; 36430; 80053; 81001; 81015; 82728; 83540; 83550; 83605; 83880; 84439; 84443; 85014; 85018; 85025; 85027; 85610; 85730; 86850; 86900; 86901; 86922; 99214; 99285; G0328; G0378; P9016; 82274; J1940; A9270-GY

== ENCOUNTER 2023-03-25 11:32 | Day surgery (SDC) | payer MEDICARE ==
[2023-03-25] MEDS ORDERED: BUPIVACAINE 0.5% VIAL IJ ONE (11:33)
[2023-03-25] MEDS ORDERED: Depo-Medrol 40 MG/ML IM ONE (11:33)
[2023-03-25] MEDS ORDERED: DIPRIVAN 200 MG/20 ML IV ONE (13:49)
[2023-03-25] MEDS ORDERED: Lactated Ringers 1,000 ML IV ONE (14:10)
--- NOTE | 2023-03-25 15:08 | XRAY ---
Indication: Right hip pain greater trochanter bursa injection. Intraoperative fluoroscopy provided for 14 seconds. 2 digital spot image submitted for interpretation demonstrates needle tip projecting lateral to right femur neck. Second needle tip lateral to right greater trochanter. Small amount of contrast injected for needle tip placement. Correlate with intraoperative findings/report.
--- NOTE | 2023-03-25 15:09 | XRAY ---
14 seconds of fluoroscopy was used in surgery for a right intra-articular hip and greater trochanteric bursa injection.
== END 2023-03-25 14:17 | disposition home or self-care (01) ==
LOC: SDC-PAIN 11:32
PROVIDERS: ATTEND Psychiatry & Neurology Pain Medicine
DX: M16.11 Unilateral primary osteoarthritis, right hip (principal); M70.61 Trochanteric bursitis, right hip
CPT/HCPCS: 20610; 73502; 77002; J1030; J2704; Q9966

== ENCOUNTER 2024-03-09 12:41 | Emergency (ER) | payer MEDICARE ==
[2024-03-09 13:03] VITALS: TEMP 97.8
[2024-03-09] MEDS ORDERED: Zofran 4 MG/2 ML VIAL ONE (13:12)
[2024-03-09] MEDS ORDERED: Sodium Chloride 0.9% 1000 ML 1,000 ML ONE (13:12)
--- NOTE | 2024-03-09 13:12 | ERPHSYRPT ---
- History of Present Illness Time Seen by Provider: 03/09/24 13:10 Source: patient, family Patient Subjective Stated Complaint: lethargic, going downhill since a week ago Thursday, fluid intake decreased, food decreased, vomiting yesterday, altered mental status Triage Nursing Assessment: Pt elias to the ER by her , vitals wnl, denies pain, A&O x2, pulses normal, skin n/w/d, reports that she is normally with it and would be able to answer questions, pt is confused, no difficulty breathing, no chest pain, vomiting yesterday, denies diarrhea Physician History: lethargic, going downhill since a week ago Thursday, fluid intake decreased, food decreased, vomiting yesterday, altered mental status pt is confused, no difficulty breathing, no chest pain, vomiting yesterday, denies diarrhea Timing/Duration: week(s) Associated Symptoms: vomiting Allergies/Adverse Reactions: No Known Drug Allergies Allergy (Verified 03/09/24 13:03) Home Medications: Famotidine 20 mg [Pepcid 20 MG] 20 mg PO HS 07/08/21 [History] Potassium Chloride [Klor-Con 10] 20 meq PO DAILY 07/08/21 [History] Amlodipine Besylate 10 mg PO DAILY 03/09/24 [History] Atorvastatin Calcium 20 mg PO DAILY 03/09/24 [History] Ferrous Sulfate 325 mg [Feosol 325 mg] 325 mg PO UD 03/09/24 [History] Hydrocodone/Acetaminophen [Hydrocodone-Acetamin 7.5-325] 1 each PO TID 03/09/24 [History] carvediloL [Coreg] 6.25 mg PO BID 03/09/24 [History] Hx Influenza Vaccination/Date Given: Yes (fall 2012) Hx Pneumococcal Vaccination/Date Given: No Travel Risk - International Travel Have you traveled outside of the country in past 3 weeks: No - Emerging Infectious Disease Are you exhibiting symptoms associated with any current EIDs: Yes Symptoms: Vomitting - Review of Systems Constitutional: Lethargy, Weakness, No Fever, No Chills Eyes: No Symptoms Ears, Nose, & Throat: No Symptoms Respiratory: No Cough, No Dyspnea Cardiac: No Chest Pain, No Edema, No Syncope Abdominal/Gastrointestinal: Vomiting, No Abdominal Pain, No Nausea, No Diarrhea Genitourinary Symptoms: No Dysuria Musculoskeletal: No Back Pain, No Neck Pain Skin: No Rash Neurological: No Dizziness, No Focal Weakness, No Sensory Changes Psychological: No Symptoms Endocrine: No Symptoms All Other Systems: Reviewed and Negative - Past Medical History Pertinent Past Medical History: Yes Neurological History: No Pertinent History ENT History: No Pertinent History Cardiac History: Hypertension Respiratory History: No Pertinent History Endocrine Medical History: No Pertinent History Musculoskeletal History: No Pertinent History GI Medical History: Esophageal Disorder, Hernia, Ulcer History: No Pertinent History Psycho-Social History: No Pertinent History Female Reproductive Disorders: Other Other Medical History: abnormal uterine cell/hyster - Past Surgical History Past Surgical History: Yes Neuro Surgical History: No Pertinent History Cardiac: No Pertinent History Respiratory: No Pertinent History Gastrointestinal: No Pertinent History Genitourinary: No Pertinent History Musculoskeletal: Other Female Surgical History: Hysterectomy Other Surgical History: right foot/toe joint replacement. prervious EGD in may 2013 - Social History Smoking Status: Never smoker Exposure to second hand smoke: No Drug Use: none Patient Lives Alone: No - Social Determinants of Health Will the patient participate in the screening: Yes Do you worry about a steady place to live?: No Do you have any problems with any of the following?: No known problems In the past 12 months,have you had to go without utilities?: No Transportation Issues: No Has anyone in your support network made you feel unsafe?: No Have you or anyone in your house had to go without enough: No - Nursing Vital Signs Nursing Vital Signs: Initial Vital Signs Temperature 97.8 F 03/09/24 12:52 Pulse Rate 61 03/09/24 12:52 Blood Pressure 132/63 03/09/24 12:52 O2 Sat by Pulse Oximetry 99 03/09/24 12:52 Pain Scale Pain Intensity 0 - Physical Exam General Appearance: no apparent distress, alert Eye Exam: PERRL/EOMI, eyes nml inspection Ears, Nose, Throat Exam: normal ENT inspection, TMs normal, pharynx normal, moist mucous membranes Neck Exam: normal inspection, non-tender, supple, full range of motion Respiratory Exam: normal breath sounds, lungs clear, No respiratory distress Cardiovascular Exam: regular rate/rhythm, normal heart sounds, normal peripheral pulses Gastrointestinal/Abdomen Exam: soft, normal bowel sounds, No tenderness, No mass Back Exam: normal inspection, normal range of motion, No CVA tenderness, No vertebral tenderness Extremity Exam: normal inspection, normal range of motion, pelvis stable Neurologic Exam: alert, oriented x 3, cooperative, normal mood/affect, nml cerebellar function, nml station & gait, sensation nml, No motor deficits Skin Exam: normal color, warm, dry, No rash Lymphatic Exam: No adenopathy SpO2: 99 - Course Nursing assessment & vital signs reviewed: Yes - CT Exams Abdomen/Pelvis CT Interpretation: Tele-radiologist Report Ordered Tests: Active Orders 24 hr Category Date Time Status ABDOMEN AND PELVIS W CONTRAST [CT] Stat Exams 03/09/24 13:50 Completed AMYLASE Stat Lab 03/09/24 12:55 Completed CBC W DIFF Stat Lab 03/09/24 12:55 Completed CMP Stat Lab 03/09/24 12:55 Completed CULTURE,URINE Stat Lab 03/09/24 14:23 Received LIPASE Stat Lab 03/09/24 12:55 Completed UA W/RFX UR CULTURE Stat Lab 03/09/24 14:23 Completed Medication Summary Discontinued Medications Generic Name Dose Route Start Last Admin Trade Name Leonq PRN Reason Stop Dose Admin Sodium Chloride 1,000 mls @ 999 mls/hr 03/09/24 13:02 03/09/24 14:18 Sodium Chloride 0.9% 1000 Ml IV 03/09/24 14:02 Infused .Q1H1M STA Infusion Sodium Chloride Confirm 03/09/24 13:12 Sodium Chloride 0.9% 1000 Ml Administered 03/09/24 13:13 Dose 1,000 mls @ ud .ROUTE .STK-MED ONE Ceftriaxone Sodium 1 gm in 100 mls @ 200 mls/hr 03/09/24 14:40 03/09/24 15:19 Rocephin 1 Gm / 100 Ml Nacl IV 03/09/24 15:09 Infused STAT ONE Infusion Ceftriaxone Sodium Confirm 03/09/24 14:43 Rocephin 1 Gm / 100 Ml Nacl Administered 03/09/24 14:44 Dose 1 gm in 100 mls @ ud IV .STK-MED ONE Ondansetron HCl 4 mg 03/09/24 13:02 03/09/24 13:13 Ondansetron Hcl 4 Mg/2 Ml Vial IV 03/09/24 13:03 4 mg STAT ONE Administration Ondansetron HCl Confirm 03/09/24 13:12 Ondansetron Hcl 4 Mg/2 Ml Vial Administered 03/09/24 13:13 Dose 4 mg .ROUTE .K-MED ONE Lab/Rad Data: Laboratory Result Diagrams 03/09/24 12:55 03/09/24 12:55 Laboratory Results 03/09/24 03/09/24 03/09/24 Range/Units 14:23 12:55 12:55 WBC 6.4 (3.98-10.04) x10^3/uL RBC 4.42 (3.93-5.22) x10^6/uL Hgb 14.2 (11.2-15.7) g/dL Hct 43.6 (34.1-44.9) % MCV 98.6 H (79.4-94.8) fL MCH 32.1 (25.6-32.2) pg MCHC 32.6 (32.2-35.5) g/dL RDW 14.7 H (11.7-14.4) % Plt Count 227 (182-369) x10^3/uL MPV 10.0 (9.4-12.3) fL Gran % 63.8 (34.0-71.1) % Immature Gran % (Auto) 0.2 (0.001-0.429) % Nucleat RBC Rel Count 0.0 (0.00-0.2) % Eos # (Auto) 0.04 (0.04-0.36) x10^3/uL Immature Gran # (Auto) 0.01 (0.001-0.031) x10^3u/L Absolute Lymphs (auto) 1.59 (1.18-3.74) x10^3/uL Absolute Monos (auto) 0.62 (0.24-0.86) x10^3/uL Absolute Nucleated RBC 0.00 (0.00-0.012) x10^3u/L Lymphocytes % 25.0 (19.3-51.7) % Monocytes % 9.8 (4.7-12.5) % Eosinophils % 0.6 L (0.7-5.8) % Basophils % 0.6 (0.1-1.2) % Absolute Granulocytes 4.05 (1.56-6.13) x10^3/uL Basophils # 0.04 (0.01-0.08) x10^3/uL Sodium 138 (135-145) mmol/L Potassium 3.2 L (3.5-5.1) mmol/L Chloride 103 (98-107) mmol/L Carbon Dioxide 28 (22-30) mmol/L Anion Gap 10.5 (5-15) MEQ/L BUN 31 H (7-17) mg/dL Creatinine 0.97 (0.52-1.04) mg/dL Estimated GFR 59.1 ML/MIN Glucose 86 (74-106) mg/dL Calcium 8.8 (8.4-10.2) mg/dL Total Bilirubin 0.50 (0.2-1.3) mg/dL AST 132 H (14-36) U/L ALT 165 H (0-35) U/L Alkaline Phosphatase 142 H (38-126) U/L Serum Total Protein 6.5 (6.3-8.2) g/dL Albumin 3.8 (3.5-5.0) g/dL Amylase 164 H (30-110) U/L Lipase 612 H (23-300) U/L Urine Color Yellow (Yellow) Urine Appearance Cloudy A (Clear) Urine pH 5.0 (4.6-8.0) Ur Specific [place] 1.025 (1.005-1.030) Urine Protein Negative (Negative) Urine Glucose (UA) Negative (Negative) mg/dL Urine Ketones Trace A (Negative) Urine Blood Negative (Negative) Urine Nitrite Positive A (Negative) Urine Bilirubin Negative (Negative) Urine Urobilinogen 0.2 (0.2) mg/dL Ur Leukocyte Esterase Small A (Negative) U Hyaline Cast (Auto) 6-10 A (0-2) /LPF Urine Microscopic RBC 0-2 (0-5) /HPF Urine Microscopic WBC 11-20 A (0-5) /HPF Ur Epithelial Cells Moderate A (None Seen) /HPF Urine Bacteria Many A (None Seen) /HPF Urine Culture Reflexed YES (NO) CLINICAL HISTORY: abdominal pain COMPARISON: No prior studies are available for comparison. TECHNIQUE: CT of the abdomen and pelvis was performed with the administration of intravenous contrast, with the following protocol: axial images with, and reconstructed coronal and sagittal images. One of the following dose reduction techniques was utilized for this exam: Automated exposure control, adjustment of the mA and/or kV according to patient size, and use of iterative reconstruction. FINDINGS: Abdomen: Liver: Normal in size, shape, and density. No focal lesions, cysts, or masses were identified. Hepatic vasculature and biliary ducts are unremarkable. Gallbladder and Biliary System: The gallbladder is distended No wall thickening, pericholecystic fluid, or hyperdense gallstones were identified. The common bile duct measures 8mm in caliber. Normal for this age. Pancreas: PatientID: [id number] Patient Name: DIOMEDES YODER Exam Date: 03/09/2024 Procedure: ABDOMEN AND PELVIS W CONTRAST page 1 of 3 Pancreatic head, body, and tail are visualized and appear normal in size and density. No pancreatic masses or calcifications were noted. The pancreatic duct is not dilated. Spleen: Normal in size, shape, and density. No splenic lesions or masses were identified. Appendix: The appendix is not visualized due to the crowding of gut loops. No free fluid or fat stranding was noted in the right iliac fossa. If of concern, correlate with CRP and TLC levels. Kidneys and Adrenal Glands: Both kidneys are normal in size, shape, and position. Cortical thickness is within normal limits. No renal calculi or hydronephrosis. Left renal parapelvic cyst. Adrenal glands are unremarkable with no evidence of masses or hyperplasia. Pelvis: Urinary Bladder: Normal in contour and wall thickness. It is distended. No intraluminal lesions were identified. Calcifications are noted in the posterior pelvis. Uterus: Not seen. Correlate with history of surgery. Peritoneal and Retroperitoneal Structures: No free fluid or abnormal fluid collections were identified within the abdomen or pelvis. No lymphadenopathy was noted. Atherosclerotic calcifications of the aorta and its branches. Bowel: The visualized bowel loops are normal in caliber. Uncomplicated colonic diverticulosis. No evidence of bowel obstruction or wall thickening. Bones and Soft Tissues: No fractures or abnormal masses were identified Moderate thoracolumbar spondylosis with left lumbar mild scoliosis. 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 Right-sided sacroiliitis. A hiatal hernia measuring 6.2 x 4.5 cm is noted. IMPRESSION: 1. No evidence of acute intra-abdominal pathology. 2. Uncomplicated colonic diverticulosis. 3. Left renal parapelvic cyst. 4. Hiatal hernia. 5. 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 6. Right-sided sacroiliitis. 7. Clinical correlation is recommended. - Progress Progress: unchanged Progress Note: 03/09/24 16:14 Labs and CAT scan report discussed with patient and her . Patient lipase and amylase has been elevated as well as patient has a urinary tract infection. Patient CAT scan did not show any significant findings and it also did not show any pancreatitis or gallstone or cholecystitis or appendicitis or diverticulitis. Patient states that she is feeling much better she has no nausea vomiting or any abdominal pain. I advised her and her to come next day for some blood test which includes comprehensive metabolic panel and lipase and amylase and follow-up with their primary care doctor on Thursday. She is advised that if her vomiting comes back she needs to come back to the emergency room. She is advised to stay on full liquid diet and advised to stay on fat-free diet for 2 to 3 days Counseled pt/family regarding: lab results, diagnosis, need for follow-up, rad results Medical Desision Making - Independent Historian Additional History obtained from: Spouse - Discussion of managment Reviewed:: Test results - Diagnostic Testing Diagnostic test were ordered, analyzed, and reviewed by me: Yes Radiological Interpretation: Interpreted by me, Teleradiologist Report - Risk of complications Low Risk: Low risk of morbidity from additional dx testing or treatment - Departure Departure Disposition: Home Clinical Impression: Abdominal pain Qualifiers: Abdominal location: periumbilical Qualified Code(s): R10.33 - Periumbilical pain Pancreatitis, acute Qualifiers: Pancreatitis type: other Acute pancreatitis complication: no infection or necrosis Qualified Code(s): K85.80 - Other acute pancreatitis without necrosis or infection Condition: Stable Critical Care Time: No Referrals: MAGI CARTER DO [Primary Care Provider] - Follow up with PCP 2 days Instructions: Acute pancreatitis, Abdominal pain, Abdominal pain in adults - Discharge instructions Additional Instructions: Your reason for vomiting probably due to mild swelling on your pancreas even though it did not show up on your CAT scan but it did suggest on your blood tests which include amylase and lipase. You also have a urinary tract infection which we already treated with IV antibiotic and we will give you some oral antibiotic prescription which can start tomorrow you are given an order to get comprehensive metabolic panel, lipase and amylase blood test to be run tomorrow. Follow-up with your primary care physician on Thursday even the nurse ajay frank in the office can see you in follow-up with your lab results. If your vomiting or abdominal pain comes back come back to the emergency room BRANDON. Discharge/Care Plan DIOMEDES YODER was seen on 03/09/24 in the Emergency Room. The patient was counseled regarding Diagnosis,Lab results, Imaging studies, need for follow up and when to return to the Emergency Room. Prescriptions given: Discharge Note I have spoken with the patient and/or caregivers. I have explained the patient's condition, diagnosis and treatment plan based on the information available to me at this time. I have answered the patient's and/or caregiver's questions and addressed any concerns. The patient and/or caregivers have as good understanding of the patient's diagnosis, condition and treatment plan as can be expected at this point. The vital signs have been stable. The patient's condition is stable and appropriate for discharge from the emergency department. The patient will pursue further outpatient evaluation with the primary care physician or other designated or consulting physician as outlined in the discharge instructions. The patient and/or caregivers are agreeable to this plan of care and follow-up instructions have been explained in detail. The patient and/or caregivers have received these instruction. The patient/and or caregivers are aware that any significant change in condition or worsening of symptoms should prompt an immediate return to this or the closest emergency department or call 911. DIOMEDES YODER was seen on 03/09/24 n the Emergency Room. At that time you were treated for an emergent condition, during your visit Laboratory, Radiology and/or other procedures may have been ordered. It is very important that you follow-up with your Primary Care Physician MAGI CARTER DO within the next 24-48 hours to review your Emergency Room visit and the final results of testing that was ordered. Some test results such as Urine Cultures, Blood Cultures, and other cultures if ordered will not be finalized for 24-48 hours. If you do not have a Primary Care Provider please call the medical records department at [phone] ext [phone] to obtain a copy of your results or you may sign into our patient portal to obtain these results by visiting us @ [email or web address] and completing the following steps: 1. Click on the Patient Portal link 2. Click the Patient Self Enrollment Link to complete the enrollment form and entering your 3. Once the enrollment form is completed you will receive an email with a temporary ID and password at the email address you provided. 4. Next choose a user name and password. Your user name must be at least 4 characters long and your password must be at least 4 characters long. 5. Choose a security question from the list and provide your answer to the question. If you already have signed into the Health Portal you may access your Health Care Information 29/09 by the following steps: 1. Login to our website @ [email or web address] 2. Enter your original user name and password. FAQS The [facility] Health Portal is an online tool that contains your Lab Results, Radiology Reports, Visit History, Discharge Instructions and Health Summary Lab and Radiology Results will not be available for 72 hours on the portal. The Portal is a secure site, passwords are encryted and URLs are re-written so they cannot be copied and pasted. You and authorized family members are the only ones who can access your Portal. Also there is a timeout feature that protects your information if you leave the Portal page open. If you have technical difficulty please use the Contact Us link on the page this will allow you to submit any questions you have regarding the Portal or you may contact the Medical Record Department at [phone]. Prescriptions: Smz/Tmp Ds Tablet [Bactrim Ds Tablet] 1 udtab PO BID #20 tablet Ondansetron ODT 4 MG [Zofran Odt 4 mg] 4 mg PO Q6H PRN PRN #10 tablet PRN Reason: Nausea/Vomiting Outpatient Orders: AMYLASE Facility: [facility] Hosp, Location: LABORATORY CMP Facility: [facility], Location: LABORATORY LIPASE Facility: [facility], Location: LABORATORY
[2024-03-09 13:13] LABS: Absolute Neutrophil Ct (ANC) 4.05 x10^3/uL (1.56-6.13); BASOPHIL % 0.6 % (0.1-1.2); Basophil (Absolute #) 0.04 x10^3/uL (0.01-0.08); Eosinophil % 0.6 % (0.7-5.8); Eosinophil (Absolute #) 0.04 x10^3/uL (0.04-0.36); Hematocrit 43.6 % (34.1-44.9); Hemoglobin 14.2 g/dL (11.2-15.7); IMMATURE GRAN # 0.01 x10^3u/L (0.001-0.031); IMMATURE GRAN % 0.2 % (0.001-0.429); Lymphocyte (Absolute #) 1.59 x10^3/uL (1.18-3.74); Mean Cell Volume 98.6 fL (79.4-94.8); Mean Corpuscular Hemoglobin 32.1 pg (25.6-32.2); Mean Corpuscular Hgb Concent. 32.6 g/dL (32.2-35.5); Monocyte (Absolute #) 0.62 x10^3/uL (0.24-0.86); Monocytes % 9.8 % (4.7-12.5); Neutrophil % 63.8 % (34.0-71.1); Platelet Count 227 x10^3/uL (182-369); Red Blood Count 4.42 x10^6/uL (3.93-5.22); Red Cell Distribution Width 14.7 % (11.7-14.4); White Blood Count 6.4 x10^3/uL (3.98-10.04)
[2024-03-09] MEDS: Sodium Chloride 0.9% 1000 ML 1,000 ML IV STA (13:13)
[2024-03-09] MEDS: Zofran 4 MG/2 ML VIAL IV ONE (13:13)
[2024-03-09 13:32] LABS: ALBUMIN 3.8 g/dL (3.5-5.0); ANION GAP 10.5 MEQ/L (5-15); BILIRUBIN,TOTAL 0.5 mg/dL (0.2-1.3); Calcium 8.8 mg/dL (8.4-10.2); Creatinine 1 0.97 mg/dL (0.52-1.04); EST GLOMERULAR FILTRATION RATE 59.1 ML/MIN; Potassium 3.2 mmol/L (3.5-5.1); Total Protein 6.5 g/dL (6.3-8.2)
[2024-03-09 14:35] LABS: Appearance Cloudy (Clear); Bacteria Many /HPF (None Seen); Bilirubin Negative (Negative); Blood Negative (Negative); Epithelial Cells Moderate /HPF (None Seen); Glucose, Urine Negative (Negative); Ketones Trace (Negative); Leukocyte Esterase Small (Negative); Nitrite Positive (Negative); Protein,Urine Dip Negative (Negative); RBC 0-2 /HPF (0-5); Specific Gravity 1.025 (1.005-1.030); Urobilinogen 0.2 mg/dL (0.2)
[2024-03-09] MEDS ORDERED: ROCEPHIN 1 GM / 100 ML NaCl 1 GM/100 ML IVPB IV ONE (14:43)
[2024-03-09] MEDS: ROCEPHIN 1 GM / 100 ML NaCl 1 GM/100 ML IVPB IV ONE (14:44)
--- NOTE | 2024-03-09 16:04 | XRAY ---
CLINICAL HISTORY: abdominal pain COMPARISON: No prior studies are available for comparison. TECHNIQUE: CT of the abdomen and pelvis was performed with the administration of intravenous contrast, with the following protocol: axial images with, and reconstructed coronal and sagittal images. One of the following dose reduction techniques was utilized for this exam: Automated exposure control, adjustment of the mA and/or kV according to patient size, and use of iterative reconstruction. FINDINGS: Abdomen: Liver: Normal in size, shape, and density. No focal lesions, cysts, or masses were identified. Hepatic vasculature and biliary ducts are unremarkable. Gallbladder and Biliary System: The gallbladder is distended No wall thickening, pericholecystic fluid, or hyperdense gallstones were identified. The common bile duct measures 8mm in caliber. Normal for this age. Pancreas: Pancreatic head, body, and tail are visualized and appear normal in size and density. No pancreatic masses or calcifications were noted. The pancreatic duct is not dilated. Spleen: Normal in size, shape, and density. No splenic lesions or masses were identified. Appendix: The appendix is not visualized due to the crowding of gut loops. No free fluid or fat stranding was noted in the right iliac fossa. If of concern, correlate with CRP and TLC levels. Kidneys and Adrenal Glands: Both kidneys are normal in size, shape, and position. Cortical thickness is within normal limits. No renal calculi or hydronephrosis. Left renal parapelvic cyst. Adrenal glands are unremarkable with no evidence of masses or hyperplasia. Pelvis: Urinary Bladder: Normal in contour and wall thickness. It is distended. No intraluminal lesions were identified. Calcifications are noted in the posterior pelvis. Uterus: Not seen. Correlate with history of surgery. Peritoneal and Retroperitoneal Structures: No free fluid or abnormal fluid collections were identified within the abdomen or pelvis. No lymphadenopathy was noted. Atherosclerotic calcifications of the aorta and its branches. Bowel: The visualized bowel loops are normal in caliber. Uncomplicated colonic diverticulosis. No evidence of bowel obstruction or wall thickening. Bones and Soft Tissues: No fractures or abnormal masses were identified Moderate thoracolumbar spondylosis with left lumbar mild scoliosis. 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 Right-sided sacroiliitis. A hiatal hernia measuring 6.2 x 4.5 cm is noted. IMPRESSION: 1. No evidence of acute intra-abdominal pathology. 2. Uncomplicated colonic diverticulosis. 3. Left renal parapelvic cyst. 4. Hiatal hernia. 5. 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 6. Right-sided sacroiliitis. 7. Clinical correlation is recommended. Electronically Signed by: Sparkle Quinn MD. (03/09/2024 16:01:07 EST)
[2024-03-09 16:10] VITALS: O2SAT 99
[2024-03-09 16:39] VITALS: BP 120/57; PULSE 69; RESP 18
== END 2024-03-09 16:55 | disposition home or self-care (01) ==
LOC: ED 12:41
DX: R10.819 Abdominal tenderness, unspecified site (principal); K85.80 Other acute pancreatitis without necrosis or infection; R10.33 Periumbilical pain; R53.83 Other fatigue; R11.2 Nausea with vomiting, unspecified; R41.82 Altered mental status, unspecified; I10 Essential (primary) hypertension; Z79.891 Long term (current) use of opiate analgesic; Z79.899 Other long term (current) drug therapy
CPT/HCPCS: 36415; 74177; 80053; 81001; 82150; 83690; 85025; 87077; 87086; 87186; 96374; 96375; 99284; 99285; J0696; J2405

== ENCOUNTER 2024-04-13 12:06 | Day surgery (SDC) | payer MEDICARE ==
[2024-04-13] MEDS ORDERED: Sodium Chloride 0.9(Preservative Free) 10 ML IJ ONE (12:07)
[2024-04-13] MEDS ORDERED: dexAMETHasone sodium phosphate IJ ONE (12:07)
[2024-04-13] MEDS ORDERED: propofoL IV ONE (13:32)
--- NOTE | 2024-04-13 14:51 | XRAY ---
Indication: Right L3-L5 transforaminal SAMAN. Intraoperative fluoroscopy provided for 26 seconds. 4 digital spot image submitted for interpretation demonstrates posterior needle tips projecting over expected right L3 and L4 nerve roots. Small amount of contrast injected for needle placement. Correlate with intraoperative findings/report.
--- NOTE | 2024-04-13 15:00 | XRAY ---
26 seconds of fluoroscopy was used in surgery for a right L3-L5 transforaminal SAMAN.
== END 2024-04-13 14:10 | disposition home or self-care (01) ==
LOC: SDC-PAIN 12:06
PROVIDERS: ATTEND Psychiatry & Neurology Pain Medicine
DX: M54.16 Radiculopathy, lumbar region (principal)
CPT/HCPCS: 72100; 77003; J1100; J2704